=== PATIENT | female | born 1980 | race Caucasian/White ===

== ENCOUNTER 2017-06-18 09:39 | Inpatient (IN) ==
[2017-06-18] MEDS ORDERED: Ondansetron 4 MG/2 ML VIAL IVP ONE (09:44)
[2017-06-18] MEDS ORDERED: 0.9 % Sodium Chloride 1,000 ML IVC ONE ×4 (09:44→23:22)
--- NOTE | 2017-06-18 09:49 | Emergency Department Note ---
Disposition Clinical Impression: Sepsis due to urinary tract infection, Pyelonephritis, Colitis presumed infectious, Tachycardia, Metabolic acidosis Hypotension Qualifiers: Hypotension type: unspecified hypotension type Qualified Code(s): I95.9 - Hypotension, unspecified Disposition: Admitted As Inpatient Condition: Fair Time of Disposition: 14:27 General Adult HPI - General Chief complaint: ED Shortness of Breath/Dyspnea Stated complaint: WILLIAM Time Seen by Provider: 06/18/17 09:41 Source: other (Borematic Machine Operator named Urszula; patient is nonverbal) Mode of arrival: EMS Limitations: language barrier Nursing Notes Reviewed: Yes Vital Signs Reviewed: Yes - History of Present Illness HPI Narrative: Patient is a 36-year-old nonverbal female with history of tuberous sclerosis who presents the ED by EMS for small variety of complaints. Patient was followed shortly by her wringer operator Urszula who helps elucidate some of the acute concerns leading up to ED presentation. Urszula states patient has been anorexic over the past day and a half (last meal was breakfast yesterday), and patient has had 2 diarrheal episodes overnight; furthermore patient appeared short of breath and "out of it" this morning. Otherwise, Urszula states patient has not been having any other apparent symptoms such as fever, diaphoresis, vomiting, distress, or other alterations in behavior. EMS reports patient fully alert with stable vitals on transport. - Related Data Allergies Allergy/AdvReac Type Severity Reaction Status Date / Time No Known Allergies Allergy Verified 06/18/17 14:54 Limitations: ROS unobtainable due to patients medical condition Past Medical History - Past Medical History Source: other (confirmed with wringer operator) Medical history: Reports: seizures Psychiatric history: Reports: no psych history - Social History Smoking Status: Never smoker Smokeless Tobacco Status: No Alcohol use: Reports: none Drug use: Reports: none Physical Exam - General Limitations: other (Nonverbal patient) General appearance: alert, in no apparent distress - Head Head exam: normocephalic - Eye Eye exam: Present: PERRL, EOMI. Absent: scleral icterus, conjunctival injection , miosis, mydriasis, periorbital swelling - ENT ENT exam: mucous membranes dry - Neck Neck exam: Present: trachea midline. Absent: meningismus (Patient moves ahead neck freely including neck flexion) - Chest Chest inspection: Present: symmetric chest wall rise - Respiratory Respiratory exam: Present: normal lung sounds bilaterally. Absent: respiratory distress, wheezes, stridor, accessory muscle use, prolonged expiratory phase - Cardiovascular Cardiovascular exam: Present: normal rhythm, tachycardia, normal heart sounds - Abdominal Exam Abdominal exam: Present: soft, Non-Tender. Absent: distention, guarding, rigidity - Neurological Exam Neurological exam: Present: alert - Skin Skin exam: Present: warm, dry. Absent: cyanosis, diaphoresis, pallor, mottled Course Vital Signs Temperature 97.1 F L 06/18/17 09:43 Pulse Rate 118 06/18/17 09:43 Respiratory Rate 18 06/18/17 09:43 Blood Pressure 90/59 06/18/17 09:43 O2 Sat by Pulse Oximetry 100 06/18/17 09:43 Temperature 97.1 F L 06/18/17 09:43 Pulse Rate 116 06/18/17 13:56 Respiratory Rate 16 06/18/17 14:34 Blood Pressure 104/58 06/18/17 14:34 O2 Sat by Pulse Oximetry 98 06/18/17 13:56 Oxygen Delivery Oxygen Delivery Room Air Medical Decision Making - [facility] Narrative Medical decision making narrative: 36-year-old nonverbal patient with history of tuberous sclerosis presents to the ED with variety of reported concerns the patient is unable to elaborate on. Patient appears stable, though tachycardic, and otherwise has a benign exam. Started IV and given 1 L bolus normal saline, checked CBC, BMP, LFT, UA, chest x -ray, EKG; UA clearly demonstrates urinary tract infection which is supported by leukocytosis with left shift; labs also significant for acute kidney injury with elevated BUN and creatinine. Other labs demonstrate multiple electrolyte abnormalities including CO2 of 10; 2 additional boluses of IV fluids started, VBG pending, serum ketones negative, blood cultures & lactate added. CT demonstrates diffuse colitis possibly infectious in etiology. Patient has been progressively hypotensive throughout ED course which has shown some response to with multiple liters of normal saline. Spoke with Dr. Velasco, hospitalist, who agrees to admit patient to ICU for ongoing fluid resuscitation and IV antibiotics for sepsis due to UTI and possible infectious colitis. Furthermore, lab profile demonstrates metabolic acidosis likely secondary to sepsis; lactate is 4.2. Second large bore IV access in progress at this time. - Medical Records Medical records reviewed: Yes I reviewed the patient's medical records. - Lab Data Lab results reviewed: Yes I reviewed the patient's lab results. Result diagrams: 06/18/17 10:38 06/18/17 10:38 Lab Results 06/18/17 06/18/17 06/18/17 Range/Units 10:15 10:38 10:38 WBC 14.1 H (4.3-11.1) K/mcL RBC 5.34 H (3.82-4.97) M/mcL Hgb 15.2 (11.5-15.4) g/dL Hct 49.4 H (35.3-44.9) % MCV 92.5 (83.0-100.0) fL MCH 28.5 (28.0-33.3) pg MCHC 30.8 L (31.6-35.5) g/dL RDW 13.0 (11.5-14.5) % Plt Count 244 (140-400) K/mcL MPV 9.9 (9.4-12.4) fL Immature Gran % 0.4 (0-4) % Seg Neutrophils % 79.3 % Lymphocytes % 9.5 % Monocytes % 10.6 % Eosinophils % 0.0 % Basophils % 0.2 % Neutrophils # 11.1 H (1.6-8.9) K/mcL Lymphocytes # 1.3 (0.6-4.6) K/mcL Monocytes # 1.5 H (0.0-1.3) K/mcL Eosinophils # 0.0 (0.0-0.6) K/mcL Basophils # 0.0 (0.0-0.2) K/mcL VBG pH (7.32-7.42) pH Units VBG pCO2 (41-51) mmHg VBG pO2 (25-50) mmHg VBG HCO3 (21-27) mEq/L Sodium 142 (136-145) mEq/L Potassium 5.5 H (3.5-4.5) mEq/L Chloride 116 H (98-109) mEq/L Carbon Dioxide 10 L* (19-29) mEq/L BUN 77 H (7-20) mg/dL Creatinine 2.91 H (0.57-1.11) mg/dL Est GFR ( Amer) 22 L (> 60) Est GFR (Non-Af Amer) 18 L (> 60) BUN/Creatinine Ratio 26 (6-26) Glucose 216 H (70-99) mg/dL Calculated Osmolality 324 H (280-300) Lactic Acid (0.5-2.2) mmol/L Calcium 9.1 (8.6-10.8) mg/dL Total Bilirubin 0.6 (0.2-1.2) mg/dL Direct Bilirubin 0.2 (0.0-0.5) mg/dL Indirect Bilirubin 0.4 (0.0-1.2) mg/dL AST 25 (5-34) Units/L ALT 30 (0-55) Units/L Alkaline Phosphatase 102 (38-126) Units/L Serum Total Protein 7.2 (6.0-8.3) g/dL Albumin 3.0 L (3.5-5.0) g/dL Globulin 4.2 H (2.4-3.5) g/dL Albumin/Globulin Ratio 0.7 L (1.1-2.2) Beta-Hydroxybutyric Acd 0.18 (0.02-0.27) mmol/L Urine Color Brown (Yellow) Urine Clarity Turbid A (Clear) Urine pH 5.0 (5.0-8.0) pH Units Ur Specific [place] 1.029 H (1.010-1.025) Urine Protein Negative (Neg-Trace) mg/dL Urine Glucose (UA) Normal (Normal) mg/dL Urine Ketones Trace H (Negative) mg/dL Urine Blood Moderate H (Negative) Urine Nitrite Positive A (Negative) Urine Bilirubin Large H (Negative) Urine Urobilinogen Normal (Normal) mg/dL Ur Leukocyte Esterase Moderate H (Negative) Urine Microscopic RBC 3-5 H (0-3) per hpf Urine Microscopic WBC 3-5 H (0-3) per hpf Ur Squamous Epith Cells Many H (None-Few) per lpf Urine Bacteria Many H (None-Few) per hpf Ur Culture Indicated? YES A (NO) Person Notif of Crit 06/18/17 06/18/17 Range/Units 13:29 13:51 WBC (4.3-11.1) K/mcL RBC (3.82-4.97) M/mcL Hgb (11.5-15.4) g/dL Hct (35.3-44.9) % MCV (83.0-100.0) fL MCH (28.0-33.3) pg MCHC (31.6-35.5) g/dL RDW (11.5-14.5) % Plt Count (140-400) K/mcL MPV (9.4-12.4) fL Immature Gran % (0-4) % Seg Neutrophils % % Lymphocytes % % Monocytes % % Eosinophils % % Basophils % % Neutrophils # (1.6-8.9) K/mcL Lymphocytes # (0.6-4.6) K/mcL Monocytes # (0.0-1.3) K/mcL Eosinophils # (0.0-0.6) K/mcL Basophils # (0.0-0.2) K/mcL VBG pH 7.19 L* (7.32-7.42) pH Units VBG pCO2 27 L (41-51) mmHg VBG pO2 198 H (25-50) mmHg VBG HCO3 10 L (21-27) mEq/L Sodium (136-145) mEq/L Potassium (3.5-4.5) mEq/L Chloride (98-109) mEq/L Carbon Dioxide (19-29) mEq/L BUN (7-20) mg/dL Creatinine (0.57-1.11) mg/dL Est GFR ( Amer) (> 60) Est GFR (Non-Af Amer) (> 60) BUN/Creatinine Ratio (6-26) Glucose (70-99) mg/dL Calculated Osmolality (280-300) Lactic Acid 4.2 H* (0.5-2.2) mmol/L Calcium (8.6-10.8) mg/dL Total Bilirubin (0.2-1.2) mg/dL Direct Bilirubin (0.0-0.5) mg/dL Indirect Bilirubin (0.0-1.2) mg/dL AST (5-34) Units/L ALT (0-55) Units/L Alkaline Phosphatase (38-126) Units/L Serum Total Protein (6.0-8.3) g/dL Albumin (3.5-5.0) g/dL Globulin (2.4-3.5) g/dL Albumin/Globulin Ratio (1.1-2.2) Beta-Hydroxybutyric Acd (0.02-0.27) mmol/L Urine Color (Yellow) Urine Clarity (Clear) Urine pH (5.0-8.0) pH Units Ur Specific [place] (1.010-1.025) Urine Protein (Neg-Trace) mg/dL Urine Glucose (UA) (Normal) mg/dL Urine Ketones (Negative) mg/dL Urine Blood (Negative) Urine Nitrite (Negative) Urine Bilirubin (Negative) Urine Urobilinogen (Normal) mg/dL Ur Leukocyte Esterase (Negative) Urine Microscopic RBC (0-3) per hpf Urine Microscopic WBC (0-3) per hpf Ur Squamous Epith Cells (None-Few) per lpf Urine Bacteria (None-Few) per hpf Ur Culture Indicated? (NO) Person Notif of Liz owens Laboratory Last Values WBC 14.1 K/mcL (4.3-11.1) H 06/18/17 10:38 RBC 5.34 M/mcL (3.82-4.97) H 06/18/17 10:38 Hgb 15.2 g/dL (11.5-15.4) 06/18/17 10:38 Hct 49.4 % (35.3-44.9) H 06/18/17 10:38 MCV 92.5 fL (83.0-100.0) 06/18/17 10:38 MCH 28.5 pg (28.0-33.3) 06/18/17 10:38 MCHC 30.8 g/dL (31.6-35.5) L 06/18/17 10:38 RDW 13.0 % (11.5-14.5) 06/18/17 10:38 Plt Count 244 K/mcL (140-400) 06/18/17 10:38 MPV 9.9 fL (9.4-12.4) 06/18/17 10:38 Immature Gran % 0.4 % (0-4) 06/18/17 10:38 Seg Neutrophils % 79.3 % 06/18/17 10:38 Lymphocytes % 9.5 % 06/18/17 10:38 Monocytes % 10.6 % 06/18/17 10:38 Eosinophils % 0.0 % 06/18/17 10:38 Basophils % 0.2 % 06/18/17 10:38 Neutrophils # 11.1 K/mcL (1.6-8.9) H 06/18/17 10:38 Lymphocytes # 1.3 K/mcL (0.6-4.6) 06/18/17 10:38 Monocytes # 1.5 K/mcL (0.0-1.3) H 06/18/17 10:38 Eosinophils # 0.0 K/mcL (0.0-0.6) 06/18/17 10:38 Basophils # 0.0 K/mcL (0.0-0.2) 06/18/17 10:38 VBG pH 7.19 pH Units (7.32-7.42) L* 06/18/17 13:51 VBG pCO2 27 mmHg (41-51) L 06/18/17 13:51 VBG pO2 198 mmHg (25-50) H 06/18/17 13:51 VBG HCO3 10 mEq/L (21-27) L 06/18/17 13:51 Sodium 142 mEq/L (136-145) 06/18/17 10:38 Potassium 5.5 mEq/L (3.5-4.5) H 06/18/17 10:38 Chloride 116 mEq/L (98-109) H 06/18/17 10:38 Carbon Dioxide 10 mEq/L (19-29) L* 06/18/17 10:38 BUN 77 mg/dL (7-20) H 06/18/17 10:38 Creatinine 2.91 mg/dL (0.57-1.11) H 06/18/17 10:38 Est GFR ( Amer) 22 (> 60) L 06/18/17 10:38 Est GFR (Non-Af Amer) 18 (> 60) L 06/18/17 10:38 BUN/Creatinine Ratio 26 (6-26) 06/18/17 10:38 Glucose 216 mg/dL (70-99) H 06/18/17 10:38 Calculated Osmolality 324 (280-300) H 06/18/17 10:38 Lactic Acid 4.2 mmol/L (0.5-2.2) H* 06/18/17 13:29 Calcium 9.1 mg/dL (8.6-10.8) 06/18/17 10:38 Total Bilirubin 0.6 mg/dL (0.2-1.2) 06/18/17 10:38 Direct Bilirubin 0.2 mg/dL (0.0-0.5) 06/18/17 10:38 Indirect Bilirubin 0.4 mg/dL (0.0-1.2) 06/18/17 10:38 AST 25 Units/L (5-34) 06/18/17 10:38 ALT 30 Units/L (0-55) 06/18/17 10:38 Alkaline Phosphatase 102 Units/L (38-126) 06/18/17 10:38 Serum Total Protein 7.2 g/dL (6.0-8.3) 06/18/17 10:38 Albumin 3.0 g/dL (3.5-5.0) L 06/18/17 10:38 Globulin 4.2 g/dL (2.4-3.5) H 06/18/17 10:38 Albumin/Globulin Ratio 0.7 (1.1-2.2) L 06/18/17 10:38 Beta-Hydroxybutyric Acd 0.18 mmol/L (0.02-0.27) 06/18/17 10:38 Urine Color Brown (Yellow) 06/18/17 10:15 Urine Clarity Turbid (Clear) A 06/18/17 10:15 Urine pH 5.0 pH Units (5.0-8.0) 06/18/17 10:15 Ur Specific [place] 1.029 (1.010-1.025) H 06/18/17 10:15 Urine Protein Negative mg/dL (Neg-Trace) 06/18/17 10:15 Urine Glucose (UA) Normal mg/dL (Normal) 06/18/17 10:15 Urine Ketones Trace mg/dL (Negative) H 06/18/17 10:15 Urine Blood Moderate (Negative) H 06/18/17 10:15 Urine Nitrite Positive (Negative) A 06/18/17 10:15 Urine Bilirubin Large (Negative) H 06/18/17 10:15 Urine Urobilinogen Normal mg/dL (Normal) 06/18/17 10:15 Ur Leukocyte Esterase Moderate (Negative) H 06/18/17 10:15 Urine Microscopic RBC 3-5 per hpf (0-3) H 06/18/17 10:15 Urine Microscopic WBC 3-5 per hpf (0-3) H 06/18/17 10:15 Ur Squamous Epith Cells Many per lpf (None-Few) H 06/18/17 10:15 Urine Bacteria Many per hpf (None-Few) H 06/18/17 10:15 Ur Culture Indicated? YES (NO) A 06/18/17 10:15 Person Notif of Liz owens 06/18/17 13:51 - Radiology Data Radiology results reviewed: Yes I reviewed the patient's radiology results. Chest X-Ray 06/18/17 09:54 IMPRESSION: No acute cardiopulmonary process. D/ / 06/18/2017 12:31:46 Pramod Reed MD / nicolas Interpreting Provider: Pramod Reed MD Abdomen/Pelvis CT 06/18/17 11:19 IMPRESSION: 1. Moderate to severe multifocal wall thickening of the colon is most suggestive of an infectious or inflammatory colitis. There is no evidence of perforation, free air, or abscess. 2. 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 3. Patient is status post right nephrectomy. 4. Multiple small subcentimeter left lower lobe pulmonary nodules, the largest measuring 5 mm within the subpleural left lower lobe. While these likely reflect benign granulomata, further follow-up of these nodules is as advised below. RECOMMENDATIONS: Fleischner Society guidelines for follow-up and management of incidentally detected pulmonary nodules: Multiple Solid Nodules: Nodule size less than 6 mm In a low-risk patient, no routine follow-up. In a high-risk patient, optional CT at 12 months. - Low risk patients include individuals with minimal or absent history of smoking and other known risk factors. - High risk patients include individuals with a history or smoking or known risk factors. Radiology 2017 http://pubs.rsna.org/doi/full/10.1148/radiol.[email or web address] D/ / 06/18/2017 13:49:53 Charbel Guerrero MD / collins Interpreting Provider: Charbel Guerrero MD - EKG Data EKG #1 EKG attestation: Yes I reviewed and interpreted this EKG. EKG results narrative: 06/18/2017 1001: rate 118, TX 173, QRS 85, QTC 414, axis 53, no specific t- wave abnormalities, no ST elevation or depression; no ischemic changes seen -- sinus tachycardia. Critical Care Time Critical Care Time: Yes Total Critical Care Time: 35 Attestation: Critical care performed: Time is exclusive of separately billable procedures. Time includes: direct patient care, patient reassessment, coordination of patient care, interpretation of data (laboratory data, radiology data, and respiratory data), review of patient's medical records, medical consultation and documentation of patient care. Procedures included in critical care time: Procedures excluded from critical care time: Attestation Statement - Attestation Attestation: I, Tano Lopez DO, examined this patient [id number] and my medical decision-making was reviewed with (Edwin Iverson PGY-1, Resident Physician. I agree with the documented findings, disposition and treatment plan as described except to the extent set forth below. Please see my progress notes for details. To repeat manual blood pressures were recorded at 105/70 and 104/68 prior to going up to the ICU. Central venous access was required at this time.
[2017-06-18 10:30] LABS: Bilirubin,Urine Large (Negative); Blood,Urine Moderate (Negative); Clarity,Urine Turbid (Clear); Glucose,Urine (UA) Normal (Normal); Ketones,Urine Trace mg/dL (Negative); Leukocyte Esterase,Urine Moderate (Negative); Nitrite,Urine Positive (Negative); Protein,Urine Negative (Neg-Trace); Specific Gravity,Urine 1.029 (1.010-1.025); Urobilinogen,Urine Normal (Normal)
[2017-06-18] MEDS ORDERED: Hydrocortisone Sodium Succ 100 MG/2 ML VIAL IVP ONE (10:36)
[2017-06-18 10:45] LABS: Basophils % 0.2 %; Hematocrit 49.4 % (35.3-44.9); Hemoglobin 15.2 g/dL (11.5-15.4); Immature Granulocytes % 0.4 % (0-4); Lymphocytes # 1.3 K/mcL (0.6-4.6); Lymphocytes % 9.5 %; Mean Corpuscular HGB Conc 30.8 g/dL (31.6-35.5); Mean Corpuscular Hemoglobin 28.5 pg (28.0-33.3); Mean Corpuscular Volume 92.5 fL (83.0-100.0); Mean Platelet Volume 9.9 fL (9.4-12.4); Monocytes # 1.5 K/mcL (0.0-1.3); Monocytes % 10.6 %; Neutrophils # 11.1 K/mcL (1.6-8.9); Platelet Count 244 K/mcL (140-400); Red Blood Count 5.34 M/mcL (3.82-4.97); Segmented Neutrophils % 79.3 %
[2017-06-18 10:55] LABS: Squamous Epithelial Cell,Urine Many per lpf (None-Few)
[2017-06-18 10:56] LABS: Bacteria,Urine Many per hpf (None-Few)
[2017-06-18 10:57] LABS: Color,Urine Brown (Yellow)
[2017-06-18 11:01] LABS: Albumin/Globulin Ratio 0.7 (1.1-2.2); Bilirubin,Direct 0.2 mg/dL (0.0-0.5); Bilirubin,Indirect 0.4 mg/dL (0.0-1.2); Bilirubin,Total 0.6 mg/dL (0.2-1.2); Calcium 9.1 mg/dL (8.6-10.8); Globulin 4.2 g/dL (2.4-3.5); Potassium 5.5 mEq/L (3.5-4.5); Total Protein 7.2 g/dL (6.0-8.3)
--- NOTE | 2017-06-18 11:38 | Emergency Department Note ---
START Narrative - START START: 36-year-old female that is chronically disabled presents emergency room for evaluation of change in mentation productive cough and generalized malaise. Unknown etiology at this time. Patient is non-conversational at baseline. Her care provider is at the bedside. Physical exam is relatively unremarkable except for skin turgor is poor mucous membranes are slightly dry. Patient does not have any sounds or crackles in her lungs or heart is regular but tachycardic. Abdomen is soft nontender nondistended with no guarding or rigidity. No signs of pitting edema in lower extremity. Vital signs are concerning. Sepsis evaluation to be completed with chest x-ray EKG CT of the abdomen. Stress dose steroids fluids to be given at this time. Patient will have antibiotic regimen started as infectious etiology presents itself. Disposition pending workup and treatment course. Patient is potentially critically ill secondary to her medical history. Disposition will most likely of admission was definitive evaluation as determined. See detailed documentation of physical exam, medical intervention, medical decision-making resident physician's note. 1145 Patient found to have significant urinary tract infection along with elevated white blood cell count and what appears to be a gap metabolic acidosis. Her glucose is elevated. Evaluation for diabetic ketoacidosis to be completed at this time. Patient will also be given Rocephin to treat urinary tract infection etiology. CT imaging is pending. Chest x-ray to be resulted. 1325 patient found to have what appears to be urosepsis with possibility of inflammatory colitis in the abdomen secondary to pyelonephritis. Hospitals patient this time for admission process. Patient has not required any aggressive resuscitation with IV blood pressure augmentation. Patient is to rest comfortably in the bed with multifocal urosepsis and multiple comorbidities augmenting her medical presentation. Admission process to be completed at this time. Fluid resuscitation provided.
[2017-06-18] MEDS: 0.9 % Sodium Chloride 1,000 ML IVC SCH (12:05)
[2017-06-18 13:06] LABS: Beta-Hydroxybutyric Acid 0.18 mmol/L (0.02-0.27)
[2017-06-18] MEDS ORDERED: 0.9 % Sodium Chloride 1,000 ML IVC SCH (13:45)
[2017-06-18 14:08] LABS: VBG HCO3 10 mEq/L (21-27); VBG PCO2 27 mmHg (41-51); VBG PH 7.19 pH Units (7.32-7.42); VBG PO2 198 mmHg (25-50)
[2017-06-18] MEDS ORDERED: Calcium Gluconate 1,000 MG in D5% in Water 100 ML IVPB ONE (14:31)
--- NOTE | 2017-06-18 14:45 | Internal Med History&Physical ---
Date of Encounter: 06/18/17 Time of Encounter: 14:40 Assessment and Plan (1) Metabolic encephalopathy Current visit: Yes Status: Acute Due to severe sepsis. (2) LENA (acute kidney injury) Current visit: Yes Status: Acute Asus sepsis and hypotension. Hydrate and keep map more than 65 at all times. Jesus catheter will be placed. Follow intake and output (3) Tuberous sclerosis Current visit: Yes Status: Acute History of tuberous sclerosis with seizures that are well controlled with topiramate (4) Colitis presumed infectious Current visit: Yes Status: Acute I will start the patient on broad-spectrum antibiotics including vancomycin, Zosyn, Flagyl. Will check stool studies for culture, C diff (5) Urinary tract infection Current visit: Yes Status: Acute Start patient and antibiotics. Urine culture. Critical care time spent in ICU care more than 35 minutes Qualifiers: Qualified Code(s): N39.0 - Urinary tract infection, site not specified Internal Medicine - H&P: HPI Chief complaint: diarrhea, weakness History of present illness: Ms. Magallanes is a 36 year old female with history of tuberous sclerosis, seizure disorder controlled with topiramate, mental retardation, lives in a detention presents with her caregiver today with the main complain of diarrhea and weakness. Patient's caregiver noticed yesterday that the patient was appearing to be weak, has not a dinner. Today patient started having diarrhea, and the patient was coming more and more lethargic. She is not been interactive with caregiver a detention. Caregiver has not noticed any fevers chills vomiting. No mention of neck pain. No cough or expectoration. She has prior history of recurrent urinary tract infections. Patient is usually alert, ambulates independently and has good appetite and eats well and communicate only with gestures. Patient has a legal guardian wishes her to be full code. On arrival to emergency room patient appears to be in severe sepsis. She had received so far 1.5 L of fluid with intermittent hypotension she is being admitted to the intensive care Past Med Surg Social Fam HX - Past Medical History Medical history: seizures Psychiatric history: no psych history - Social History Smoking Status: Never smoker Smokeless Tobacco Status: No Alcohol use: none Drug use: none Internal Medicine - H&P: Meds 3 Allergy/AdvReac Type Severity Reaction Status Date / Time No Known Allergies Allergy Verified 01/03/17 12:19 All Systems PM: A 10-system review of systems was performed and is negative for pertinent findings except as documented above in the HPI. Review of systems: 10 point review of systems is negative except for HPI - Constitutional Vitals: Temp Pulse Resp BP Pulse Ox 97.1 F L 116 16 104/58 98 06/18/17 09:43 06/18/17 13:56 06/18/17 14:34 06/18/17 14:34 06/18/17 13:56 Exam: Gen.: patient is lethargic Cardiac: normal S1 S2 tachycardic Chest: clear to auscultation. Abdomen: soft nontender, no guarding Lower extremity no swelling mucous membranes: dry Internal Med - H&P Results - Labs CBC & Chem 7: 06/18/17 10:38 06/18/17 10:38
[2017-06-18] MEDS ORDERED: Vancomycin 1,000 MG in D5% in Water 250 ML IVPB SCH (15:00)
[2017-06-18] MEDS: Sodium Bicarbonate 50 MEQ in 0.45 % Sodium Chloride 1,000 ML IVC SCH ×2 (15:51→21:56)
[2017-06-18] MEDS: Piperacillin/Tazobactam 3.375 GM in D5% in Water (Mini-Bag+) 100 ML IVPB SCH (17:04)
[2017-06-18] MEDS: MetroNIDAZOLE 500 MG/100 ML 500 MG/100 ML BAG IVPB SCH ×2 (17:04→22:14)
[2017-06-18 17:11] LABS: Magnesium 2.3 mg/dL (1.6-2.6); Potassium 5.1 mEq/L (3.5-4.5)
[2017-06-18 17:16] LABS: VBG HCO3 10 mEq/L (21-27); VBG PCO2 22 mmHg (41-51); VBG PH 7.29 pH Units (7.32-7.42); VBG PO2 218 mmHg (25-50)
[2017-06-18 17:17] LABS: Calcium 7.1 mg/dL (8.6-10.8)
[2017-06-18 21:34] LABS: VBG HCO3 12 mEq/L (21-27); VBG PCO2 28 mmHg (41-51); VBG PH 7.23 pH Units (7.32-7.42); VBG PO2 223 mmHg (25-50)
[2017-06-18 23:48] LABS: Basophils % 0.1 %; Hematocrit 41.4 % (35.3-44.9); Hemoglobin 13.2 g/dL (11.5-15.4); Immature Granulocytes % 0.4 % (0-4); Immature Platelets 1.6 % (1.1-6.1); Lymphocytes # 0.7 K/mcL (0.6-4.6); Lymphocytes % 9.5 %; Mean Corpuscular HGB Conc 31.9 g/dL (31.6-35.5); Mean Corpuscular Hemoglobin 28.6 pg (28.0-33.3); Mean Corpuscular Volume 89.8 fL (83.0-100.0); Monocytes # 0.9 K/mcL (0.0-1.3); Monocytes % 11.1 %; Neutrophils # 6.1 K/mcL (1.6-8.9); Platelet Count 156 K/mcL (140-400); Red Blood Count 4.61 M/mcL (3.82-4.97); Red Cell Distribution Width 13.2 % (11.5-14.5); Segmented Neutrophils % 78.9 %
[2017-06-19] LABS: Calcium 7.1 mg/dL (8.6-10.8); Potassium 4.3 mEq/L (3.5-4.5)
[2017-06-19] MEDS: Piperacillin/Tazobactam 3.375 GM in D5% in Water (Mini-Bag+) 100 ML IVPB SCH ×2 (00:19→07:57)
[2017-06-19] MEDS: Sodium Bicarbonate 50 MEQ in 0.45 % Sodium Chloride 1,000 ML IVC SCH ×3 (03:22→15:23)
[2017-06-19 05:41] LABS: Albumin 2.3 g/dL (3.5-5.0); Bilirubin,Total 0.3 mg/dL (0.2-1.2); Calcium 6.2 mg/dL (8.6-10.8); Globulin 2.3 g/dL (2.4-3.5); Magnesium 1.8 mg/dL (1.6-2.6); Potassium 3.7 mEq/L (3.5-4.5); Total Protein 4.6 g/dL (6.0-8.3)
[2017-06-19] MEDS: MetroNIDAZOLE 500 MG/100 ML 500 MG/100 ML BAG IVPB SCH ×3 (05:46→23:16)
[2017-06-19 06:40] LABS: Basophils % 0.1 %; Eosinophils % 0.3 %; Hematocrit 30.7 % (35.3-44.9); Immature Granulocytes % 0.3 % (0-4); Immature Platelets 1.7 % (1.1-6.1); Lymphocytes # 0.9 K/mcL (0.6-4.6); Lymphocytes % 10.8 %; Mean Corpuscular HGB Conc 32.6 g/dL (31.6-35.5); Mean Corpuscular Hemoglobin 28.4 pg (28.0-33.3); Mean Corpuscular Volume 87.2 fL (83.0-100.0); Monocytes % 13.1 %; Platelet Count 142 K/mcL (140-400); Red Blood Count 3.52 M/mcL (3.82-4.97); Red Cell Distribution Width 13.4 % (11.5-14.5); Segmented Neutrophils % 75.4 %
[2017-06-19] MEDS ORDERED: Aminoglycoside Consult 1 EACH MC ONE (07:57)
[2017-06-19] MEDS: Pantoprazole 40 MG VIAL IVP SCH (07:58)
[2017-06-19 09:46] LABS: Adenovirus F 40/41 PCR Not detected (Not detect); Astrovirus PCR Not detected (Not detect); C.difficile Toxin A/B by PCR Not detected (Not detect); Campylobacter by PCR Not detected (Not detect); Cryptosporidium by PCR Not detected (Not detect); Cyclospora cayetanensis PCR Not detected (Not detect); E. coli O157 by PCR Not detected (Not detect); Entamoeba histolytica PCR Not detected (Not detect); Enteroaggregative E.coli(EAEC) Not detected (Not detect); Enteropathogenic E.coli(EPEC) Not detected (Not detect); Enterotoxigenic E.coli (ETEC) Not detected (Not detect); Giardia lamblia PCR Not detected (Not detect); Norovirus GI/GII PCR Not detected (Not detect); Plesiomonas shigelloides PCR Not detected (Not detect); Rotavirus A PCR Not detected (Not detect); Salmonella PCR Not detected (Not detect); Sapovirus PCR Not detected (Not detect); Shig/EnteroinvasiveE coli EIEC Not detected (Not detect); Shigalike tox-prod E coli STEC Not detected (Not detect); Vibrio PCR Not detected (Not detect); Vibrio cholerae PCR Not detected (Not detect); Yersinia enterocolitica PCR Not detected (Not detect)
--- NOTE | 2017-06-19 14:18 | Electrocardiograph Report ---
[address] [place], [place] [address] Test Date: 2017-06-18 Pat Name: Yuliya Magallanes Department: 102 Room: [facility] Gender: F Punch Hand: Elder : 1980 Requested By: Edwin Iverson Order Number: [id number] Reading MD: Phoebe Mcmillan Measurements Intervals [place] Rate: 118 P: 72 CT: 173 QRS: 53 QRSD: 85 T: 76 QT: 344 QTc: 414 Interpretive Statements SINUS TACHYCARDIA POSSIBLE RIGHT ATRIAL ENLARGEMENT NONSPECIFIC T-WAVE ABNORMALITY ABNORMAL RHYTHM ECG Electronically Signed On 06-19-2017 14:17:40 EDT by Phoebe Mcmillan
--- NOTE | 2017-06-19 14:51 | Internal Med Progress Note ---
Date of Encounter: 06/19/17 Time of Encounter: 14:48 - Assessment and plan (1) Colitis presumed infectious Current Visit: Yes Status: Acute Assessment and plan: Acute metabolic acidosis due to Severe sepsis secondary to acute colitis possibly infectious Discontinue Zosyn and vancomycin Start IV ciprofloxacin and continue Flagyl IV The patient is currently nothing by mouth, okay to start oral antiseizure medications, consider clear liquids if improving Consider pressors if not improving CT scan of the abdomen showed:1. Moderate to severe multifocal wall thickening of the colon is most suggestive of an infectious or inflammatory colitis. There is no evidence of perforation, free air, or abscess. 2. 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 3. Patient status post right nephrectomy. 4. Multiple small subcentimeter left lower lobe pulmonary nodules, the largest measuring 5 mm within the subpleural left lower lobe. While these likely reflect benign granulomata, further follow-up of these nodules is as advised below. 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 May resume topiramate, may order Ativan IV as needed May be transferred out of the ICU is improving - Subjective Interval history: Patient is nonverbal at the moment, unable to provide any history or review of systems due to her condition - Constitutional Vitals: Temp Pulse Resp BP Pulse Ox 99.5 F 107 19 112/89 95 06/19/17 12:00 06/19/17 14:00 06/19/17 14:00 06/19/17 14:00 06/19/17 14:00 General appearance: Present: A&O X 1 - Head Head exam: Present: atraumatic, normocephalic - Eye Eye exam: Present: PERRL, conjuntiva pink, sclera anicteric Pupils: Present: PERRL - Neck Neck exam general surgery: Present: supple, trachea midline. Absent: lymphadenopathy Additional comments: Kyphosis - Respiratory Respiratory exam: Present: CTAB. Absent: accessory muscle use, rales, rhonchi, wheezes - Cardiovascular Cardiovascular exam: Present: RRR, +S1, +S2. Absent: diastolic murmur, gallop, rubs, systolic murmur - GI/Abdominal GI/Abdominal exam: Present: normal bowel sounds, soft, tenderness (Diffuse abdominal tenderness), no peritoneal signs. Absent: distended - Extremities Exam Extremities exam: Present: warm, radial pulses palpable and symmetrical. Absent : calf tenderness, cyanotic, pedal edema - Neurological Exam Neurological exam: Present: CN II-XII intact, no focal deficits. Absent: oriented X3, pronater drift, facial droop, speech deficit - Skin Skin exam: Present: dry, intact Additional comments: Dermatologic facial lesions compatible with tubero sclerosis Internal Medicine: Result - Labs CBC & Chem 7: 06/19/17 05:52 06/19/17 04:34 Labs: Short CBC 06/18/17 06/19/17 Range/Units 23:35 05:52 WBC 7.7 7.9 (4.3-11.1) K/mcL Hgb 13.2 D 10.0 L D (11.5-15.4) g/dL Hct 41.4 30.7 L (35.3-44.9) % Plt Count 156 142 (140-400) K/mcL Neutrophils # 6.1 6.0 (1.6-8.9) K/mcL BMP 06/18/17 06/18/17 06/19/17 16:52 23:35 04:34 Sodium 145 144 146 H Potassium 5.1 H 4.3 3.7 Chloride 122 H 119 H 122 H Carbon Dioxide 10 L* 11 L 14 L BUN 75 H 71 H 58 H Creatinine 2.36 H 2.51 H 2.02 H Glucose 199 H 147 H 122 H Calcium 7.1 L D 7.1 L 6.2 L Liver Function 06/19/17 Range/Units 04:34 Total Bilirubin 0.3 (0.2-1.2) mg/dL AST 23 (5-34) Units/L ALT 19 (0-55) Units/L Alkaline Phosphatase 60 (38-126) Units/L Albumin 2.3 L D (3.5-5.0) g/dL - VTE Documentation of Mechanical Device: Intermittent pneumatic compression device Consult Discharge Plan - Plan Referrals: Bart Caceres MD [Primary Care Provider] -
[2017-06-19] MEDS ORDERED: *HR* LORazepam 2 MG/ML VIAL IVP PRN (14:56)
[2017-06-19 15:57] LABS: VBG PH 7.34 pH Units (7.32-7.42)
[2017-06-19] MEDS: Topiramate 100 MG TABLET PO SCH ×2 (17:47→20:17)
[2017-06-19] MEDS: D5% in 0.45% NACL 1,000 ML IVC SCH ×2 (17:47→23:14)
[2017-06-19] MEDS: (Lamotrigine [Lamictal Xr] 300 MG) PO SCH (18:02)
[2017-06-19] MEDS: 0.9 % Sodium Chloride 1,000 ML IVC SCH ×4 (20:56→20:59)
[2017-06-20] MEDS: D5% in 0.45% NACL 1,000 ML IVC SCH ×5 (04:40→22:34)
[2017-06-20 05:03] LABS: Hemoglobin 9.4 g/dL (11.5-15.4); Mean Corpuscular HGB Conc 32.4 g/dL (31.6-35.5); Mean Corpuscular Hemoglobin 28.6 pg (28.0-33.3); Mean Corpuscular Volume 88.1 fL (83.0-100.0); Mean Platelet Volume 10.8 fL (9.4-12.4); Platelet Count 129 K/mcL (140-400); Red Blood Count 3.29 M/mcL (3.82-4.97); Red Cell Distribution Width 13.6 % (11.5-14.5)
[2017-06-20 05:17] LABS: Calcium 6.9 mg/dL (8.6-10.8); Potassium 3.1 mEq/L (3.5-4.5)
[2017-06-20] MEDS: MetroNIDAZOLE 500 MG/100 ML 500 MG/100 ML BAG IVPB SCH ×3 (06:31→22:23)
[2017-06-20] MEDS: FLUoxetine 20 MG CAPSULE PO SCH (08:36)
[2017-06-20] MEDS: Pantoprazole 40 MG VIAL IVP SCH (08:36)
[2017-06-20] MEDS: Topiramate 100 MG TABLET PO SCH ×3 (08:38→20:01)
[2017-06-20] MEDS ORDERED: (Lamotrigine [Lamictal Xr] 300 MG) PO SCH (09:00)
[2017-06-20] MEDS: (Lamotrigine [Lamictal Xr] 300 MG) PO SCH (17:32)
[2017-06-20] MEDS: lamoTRIgine 100 MG TABLET PO SCH ×2 (18:08→23:29)
[2017-06-20] MEDS ORDERED: lamoTRIgine 100 MG TABLET PO SCH (21:00)
--- NOTE | 2017-06-21 00:06 | Internal Med Progress Note ---
Date of Encounter: 06/20/17 Time of Encounter: 15:37 - Assessment and plan (1) Colitis presumed infectious Current Visit: Yes Status: Acute Assessment and plan: Acute metabolic acidosis due to Severe sepsis secondary to acute colitis possibly infectious 06/20: Discontinue Zosyn and vancomycin 06/20: Start IV ciprofloxacin and continue Flagyl IV 06/21: advanced to clear liquid diet today without issue. Continue Cipro/Flagyl and monitor diet. BP seems more stable today. Possible transfer to floor in AM if does well. (2) LENA (acute kidney injury) Current Visit: Yes Status: Acute Assessment and plan: Acute and chronic renal failure in the setting of chronic kidney disease stage IV Cr improved now 1.55 was 2 yesterday Continue IV fluids /aggressive hydration (3) Metabolic acidosis Current Visit: Yes Status: Acute Assessment and plan: Resolved. Has been off bicarbonate drip. 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 She is alert and has had no acute events. - Constitutional Vitals: Temp Pulse Resp BP Pulse Ox 98.6 F 98 18 118/80 95 06/20/17 23:57 06/20/17 23:57 06/20/17 23:57 06/20/17 23:57 06/20/17 23:57 General appearance: Present: A&O X 1 Exam: - Head Head exam: Present: atraumatic, normocephalic - Eye Eye exam: Present: PERRL, conjuntiva pink, sclera anicteric Pupils: Present: PERRL - Neck Neck exam general surgery: Present: supple, trachea midline. Absent: lymphadenopathy Additional comments: Kyphosis - Respiratory Respiratory exam: Present: CTAB. Absent: accessory muscle use, rales, rhonchi, wheezes - Cardiovascular Cardiovascular exam: Present: RRR, +S1, +S2. Absent: diastolic murmur, gallop, rubs, systolic murmur - GI/Abdominal GI/Abdominal exam: Present: normal bowel sounds, soft, tenderness (Diffuse abdominal tenderness, without guarding but shows discomfort), no peritoneal signs. Absent: distended - Extremities Exam Extremities exam: Present: warm, radial pulses palpable and symmetrical. Absent : calf tenderness, cyanotic, pedal edema - Neurological Exam Neurological exam: Present: CN II-XII intact, no focal deficits. Absent: oriented X3, pronater drift, facial droop, speech deficit - Skin Skin exam: Present: dry, intact Dermatologic facial lesions compatible with tubero sclerosis Internal Medicine: Result - Labs CBC & Chem 7: 06/20/17 04:30 06/20/17 04:30 Labs: Short CBC 06/20/17 Range/Units 04:30 WBC 8.6 (4.3-11.1) K/mcL Hgb 9.4 L (11.5-15.4) g/dL Hct 29.0 L (35.3-44.9) % Plt Count 129 L (140-400) K/mcL BMP 06/20/17 04:30 Sodium 147 H Potassium 3.1 L Chloride 120 H Carbon Dioxide 20 BUN 27 H D Creatinine 1.55 H Glucose 179 H Calcium 6.9 L - VTE Documentation of Mechanical Device: Intermittent pneumatic compression device Consult Discharge Plan - Plan Referrals: Bart Caceres MD [Primary Care Provider] -
[2017-06-21] MEDS: D5% in 0.45% NACL 1,000 ML IVC SCH (03:56)
[2017-06-21] MEDS: MetroNIDAZOLE 500 MG/100 ML 500 MG/100 ML BAG IVPB SCH (06:43)
[2017-06-21 06:47] LABS: Basophils % 0.3 %; Eosinophils # 0.2 K/mcL (0.0-0.6); Eosinophils % 2.1 %; Hemoglobin 8.9 g/dL (11.5-15.4); Immature Granulocytes % 1.4 % (0-4); Immature Platelets 2.6 % (1.1-6.1); Lymphocytes # 1.6 K/mcL (0.6-4.6); Lymphocytes % 16.4 %; Mean Corpuscular HGB Conc 31.8 g/dL (31.6-35.5); Mean Corpuscular Hemoglobin 28.4 pg (28.0-33.3); Mean Corpuscular Volume 89.5 fL (83.0-100.0); Mean Platelet Volume 10.3 fL (9.4-12.4); Monocytes # 0.8 K/mcL (0.0-1.3); Neutrophils # 7.1 K/mcL (1.6-8.9); Platelet Count 129 K/mcL (140-400); Red Blood Count 3.13 M/mcL (3.82-4.97); Red Cell Distribution Width 13.5 % (11.5-14.5); Segmented Neutrophils % 71.8 %
[2017-06-21 07:05] LABS: BUN/Creatinine Ratio 8 (6-26); Calcium 7.1 mg/dL (8.6-10.8); Carbon Dioxide 20 mEq/L (19-29); Chloride 120 mEq/L (98-109); Glucose 154 mg/dL (70-99); Osmolality,Calculated 296 (280-300); Potassium 2.9 mEq/L (3.5-4.5); Sodium 142 mEq/L (136-145); eGFR For African Americans > 60 (> 60); eGFR For Non-African Americans 51 (> 60)
[2017-06-21 07:12] LABS: Blood Urea Nitrogen 10 mg/dL (7-20)
[2017-06-21] MEDS: Topiramate 100 MG TABLET PO SCH (07:59)
[2017-06-21] MEDS: FLUoxetine 20 MG CAPSULE PO SCH (07:59)
[2017-06-21] MEDS: lamoTRIgine 100 MG TABLET PO SCH ×3 (07:59→22:53)
[2017-06-21] MEDS: Pantoprazole 40 MG VIAL IVP SCH (08:00)
[2017-06-21] MEDS ORDERED: Potassium Chloride Elixir 20 MEQ/15 ML UDC PO ONE ×2 (11:57→13:00)
[2017-06-21] MEDS: Cholecalciferol (D-3) 1,000 UNIT TABLET PO SCH (12:51)
[2017-06-21] MEDS ORDERED: QUETIAPINE FUMARATE 400 MG PO SCH (15:00)
[2017-06-21] MEDS: EVEROLIMUS 7.5 MG PO SCH (16:09)
[2017-06-21] MEDS ORDERED: LAMOTRIGINE 400 MG PO SCH (21:00)
--- NOTE | 2017-06-21 23:21 | Internal Med Progress Note ---
Date of Encounter: 06/21/17 Time of Encounter: 13:20 - Assessment and plan (1) Colitis presumed infectious Current Visit: Yes Status: Acute Assessment and plan: Acute metabolic acidosis due to Severe sepsis secondary to acute colitis possibly infectious 06/20: Discontinue Zosyn and vancomycin 06/20: Start IV ciprofloxacin and continue Flagyl IV. GI panel negative. 06/21: advanced to clear liquid diet today without issue. Hold IVF. Transfer out of ICU today. Continue Cipro/Flagyl and closely monitor for fevers. Monitor diet intake, advance as tolerated. (2) LENA (acute kidney injury) Current Visit: Yes Status: Acute Assessment and plan: Resolved. (3) Metabolic acidosis Current Visit: Yes Status: Acute Assessment and plan: Resolved. Has been off bicarbonate drip. 06/21: Can transfer out of ICU today.. 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 Temperature of 100.6 F at 9 am. Since then has not had fever. No acute events per nursing. Tolerates Clear liquid diet - Constitutional Vitals: Temp Pulse Resp BP Pulse Ox 99.2 F 109 14 95/60 96 06/21/17 20:28 06/21/17 20:28 06/21/17 20:28 06/21/17 20:28 06/21/17 20:28 General appearance: Present: A&O X 1 Exam: - Head Head exam: Present: atraumatic, normocephalic - Respiratory Respiratory exam: Present: CTAB. Absent: accessory muscle use, rales, rhonchi, wheezes - Cardiovascular Cardiovascular exam: Present: RRR, +S1, +S2. Absent: diastolic murmur, gallop, rubs, systolic murmur - GI/Abdominal GI/Abdominal exam: Present: normal bowel sounds, soft, tenderness (Diffuse abdominal tenderness, without guarding but shows discomfort), no peritoneal signs. Absent: distended - Extremities Exam Extremities exam: Present: warm, radial pulses palpable and symmetrical. Absent : calf tenderness, cyanotic, pedal edema - Neurological Exam Neurological exam: Present: CN II-XII intact, no focal deficits. Absent: oriented X3, pronater drift, facial droop, speech deficit - Skin Skin exam: Present: dry, intact Dermatologic facial lesions compatible with tubero sclerosis Internal Medicine: Result - Labs CBC & Chem 7: 06/21/17 06:24 06/21/17 06:24 Labs: Short CBC 06/21/17 Range/Units 06:24 WBC 9.9 (4.3-11.1) K/mcL Hgb 8.9 L (11.5-15.4) g/dL Hct 28.0 L (35.3-44.9) % Plt Count 129 L (140-400) K/mcL Neutrophils # 7.1 (1.6-8.9) K/mcL BMP 06/21/17 06:24 Sodium 142 Potassium 2.9 L Chloride 120 H Carbon Dioxide 20 BUN 10 D Creatinine 1.19 H Glucose 154 H Calcium 7.1 L - VTE Documentation of Mechanical Device: Intermittent pneumatic compression device Consult Discharge Plan - Plan Referrals: Bart Caceres MD [Primary Care Provider] -
[2017-06-22] MEDS: lamoTRIgine 100 MG TABLET PO SCH ×4 (02:10→20:06)
--- NOTE | 2017-06-22 07:30 | Internal Med Progress Note ---
Date of Encounter: 06/22/17 Time of Encounter: 07:20 - Assessment and plan (1) Colitis presumed infectious Current Visit: Yes Status: Acute Assessment and plan: Acute metabolic acidosis due to Severe sepsis secondary to acute colitis possibly infectious 06/20: Discontinue Zosyn and vancomycin 06/20: Start IV ciprofloxacin and continue Flagyl IV. GI panel negative. 06/21: advanced to clear liquid diet today without issue. Hold IVF. Transfer out of ICU today. Continue Cipro/Flagyl and closely monitor for fevers. 06/22: ate 100% clear liquid breakfast. advanced diet to soft for dinner will monitor appetite. Many medications of hers have narrow therapeutic window, must have close monitoring to prevent toxic levels with dehydration. (2) LENA (acute kidney injury) Current Visit: Yes Status: Resolved Assessment and plan: Resolved. 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 Qualifiers: Urinary tract infection type: site unspecified Hematuria presence: without hematuria Qualified Code(s): N39.0 - Urinary tract infection, site not specified - Subjective Interval history: Patient is nonverbal at baseline. Tmax 99.4 overnight. No acute events per nursing. - Constitutional Vitals: Temp Pulse Resp BP Pulse Ox 98.7 F 105 14 97/64 96 06/22/17 04:20 06/22/17 04:20 06/22/17 04:20 06/22/17 04:20 06/22/17 04:20 General appearance: Present: A&O X 1 Internal Medicine: Result - Labs CBC & Chem 7: 06/22/17 13:13 06/22/17 07:52 - VTE Documentation of Mechanical Device: Intermittent pneumatic compression device Consult Discharge Plan - Plan Referrals: Bart Caceres MD [Primary Care Provider] - 06/29/17 1:00 pm
[2017-06-22 08:37] LABS: Calcium 7.6 mg/dL (8.6-10.8); Potassium 3.4 mEq/L (3.5-4.5)
[2017-06-22 08:43] LABS: Basophils % 0.4 %; Eosinophils # 0.2 K/mcL (0.0-0.6); Eosinophils % 2.3 %; Hematocrit 29.8 % (35.3-44.9); Hemoglobin 9.3 g/dL (11.5-15.4); Immature Granulocytes % 2.8 % (0-4); Mean Corpuscular HGB Conc 31.2 g/dL (31.6-35.5); Mean Corpuscular Hemoglobin 28.2 pg (28.0-33.3); Mean Corpuscular Volume 90.3 fL (83.0-100.0); Mean Platelet Volume 10.1 fL (9.4-12.4); Monocytes # 0.8 K/mcL (0.0-1.3); Monocytes % 8.7 %; Neutrophils # 6.1 K/mcL (1.6-8.9); Nucleated Red Blood Cells 0.2 /100 WBC (0); Platelet Count 141 K/mcL (140-400); Red Cell Distribution Width 13.4 % (11.5-14.5); Segmented Neutrophils % 64.8 %
[2017-06-22] MEDS: Loratadine 10 MG TABLET PO SCH (10:26)
[2017-06-22] MEDS: MetroNIDAZOLE 500 MG/100 ML 500 MG/100 ML BAG IVPB SCH ×2 (10:29→16:32)
[2017-06-22] MEDS: Cholecalciferol (D-3) 1,000 UNIT TABLET PO SCH (10:29)
[2017-06-22 13:55] LABS: Hematocrit 30.1 % (35.3-44.9); Hemoglobin 9.4 g/dL (11.5-15.4)
[2017-06-22] MEDS: EVEROLIMUS 7.5 MG PO SCH (16:33)
[2017-06-22 21:38] LABS: Hematocrit 26.5 % (35.3-44.9); Hemoglobin 8.4 g/dL (11.5-15.4)
[2017-06-23] MEDS: lamoTRIgine 100 MG TABLET PO SCH ×6 (00:01→21:52)
[2017-06-23] MEDS: MetroNIDAZOLE 500 MG/100 ML 500 MG/100 ML BAG IVPB SCH ×2 (00:02→08:48)
[2017-06-23] MEDS: Cholecalciferol (D-3) 1,000 UNIT TABLET PO SCH (08:50)
[2017-06-23] MEDS: Loratadine 10 MG TABLET PO SCH (08:50)
[2017-06-23] MEDS: EVEROLIMUS 7.5 MG PO SCH (18:02)
[2017-06-23] MEDS ORDERED: 0.9 % Sodium Chloride 500 ML IVC ONE (18:07)
--- NOTE | 2017-06-23 18:08 | Internal Med Progress Note ---
Date of Encounter: 06/23/17 Time of Encounter: 14:30 - Assessment and plan (1) Colitis presumed infectious Current Visit: Yes Status: Acute Assessment and plan: Acute metabolic acidosis due to Severe sepsis secondary to acute colitis possibly infectious 06/20: Discontinue Zosyn and vancomycin 06/20: Start IV ciprofloxacin and continue Flagyl IV. GI panel negative. 06/21: advanced to clear liquid diet today without issue. Hold IVF. Transfer out of ICU today. Continue Cipro/Flagyl and closely monitor for fevers. 06/22: ate 100% clear liquid breakfast. advanced diet to soft for dinner will monitor appetite. 06/23: Appetite not as good as yesterday. Restart Topamax. Continue to monitor by mouth intake. We will give IV fluid with Topamax because her appetite is not as good as yesterday. Many medications of hers have narrow therapeutic window, must have close monitoring to prevent toxic levels with dehydration. We will restart Topamax and give some IV fluid to prevent any further toxicity. (2) LENA (acute kidney injury) Current Visit: Yes Status: Resolved Assessment and plan: Resolved. She is approaching her baseline. She still needs close monitoring (3) Metabolic acidosis Current Visit: Yes Status: Resolved Assessment and plan: Resolved. Has been off bicarbonate drip. 06/21: Can transfer out of ICU today.. 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 Tmax 99.9 overnight. No acute events per nursing. Nursing reports that her appetite is good especially with fluids. - Constitutional Vitals: Temp Pulse Resp BP Pulse Ox 98.9 F 106 16 107/68 98 06/23/17 15:25 06/23/17 15:25 06/23/17 15:25 06/23/17 15:25 06/23/17 15:25 General appearance: Present: no acute distress Exam: - Head Head exam: Present: atraumatic, normocephalic - Respiratory Respiratory exam: Present: CTAB. Absent: accessory muscle use, rales, rhonchi, wheezes - Cardiovascular Cardiovascular exam: Present: RRR, +S1, +S2. Absent: diastolic murmur, gallop, rubs, systolic murmur - GI/Abdominal GI/Abdominal exam: Present: She refuses my abdominal exam, no peritoneal signs. Absent: distended - Extremities Exam Extremities exam: Present: warm, radial pulses palpable and symmetrical. Absent : calf tenderness, cyanotic, pedal edema - Neurological Exam Neurological exam: Present: CN II-XII intact, no focal deficits. Absent: oriented X3, pronater drift, facial droop, speech deficit - Skin Skin exam: Present: dry, intact Dermatologic facial lesions compatible with tubero sclerosis Internal Medicine: Result - Labs CBC & Chem 7: 06/22/17 21:10 06/22/17 07:52 Labs: Short CBC 06/22/17 Range/Units 21:10 Hgb 8.4 L (11.5-15.4) g/dL Hct 26.5 L (35.3-44.9) % - VTE Documentation of Mechanical Device: Intermittent pneumatic compression device Consult Discharge Plan - Plan Referrals: Bart Caceres MD [Primary Care Provider] - 06/29/17 1:00 pm
[2017-06-23] MEDS ORDERED: 0.9 % Sodium Chloride 1,000 ML IVC SCH (18:15)
[2017-06-23 19:20] LABS: Basophils % 0.4 %; Eosinophils # 0.2 K/mcL (0.0-0.6); Hematocrit 27.5 % (35.3-44.9); Hemoglobin 8.6 g/dL (11.5-15.4); Immature Granulocytes % 4.8 % (0-4); Lymphocytes # 1.6 K/mcL (0.6-4.6); Lymphocytes % 20.7 %; Mean Corpuscular HGB Conc 31.3 g/dL (31.6-35.5); Mean Corpuscular Hemoglobin 28.3 pg (28.0-33.3); Mean Corpuscular Volume 90.5 fL (83.0-100.0); Mean Platelet Volume 10.1 fL (9.4-12.4); Monocytes # 0.8 K/mcL (0.0-1.3); Monocytes % 10.3 %; Nucleated Red Blood Cells 0.7 /100 WBC (0); Platelet Count 157 K/mcL (140-400); Red Blood Count 3.04 M/mcL (3.82-4.97); Red Cell Distribution Width 13.4 % (11.5-14.5); Segmented Neutrophils % 61.8 %
[2017-06-23 19:22] LABS: Neutrophils # 4.8 K/mcL (1.6-8.9)
[2017-06-23 19:31] LABS: Calcium 7.5 mg/dL (8.6-10.8)
[2017-06-23 19:40] LABS: Basophilic Stippling 1+ (Not Present); Platelet Estimate Normal (Normal); Polychromasia 1+ (Not Present)
[2017-06-23] MEDS: Topiramate 100 MG TABLET PO SCH (21:52)
[2017-06-24] MEDS ORDERED: Piperacillin/Tazobactam 3.375 GM in D5% in Water (Mini-Bag+) 100 ML IVPB SCH
[2017-06-24 05:28] LABS: Basophils % 0.4 %; Eosinophils # 0.1 K/mcL (0.0-0.6); Eosinophils % 1.6 %; Hematocrit 25.9 % (35.3-44.9); Hemoglobin 8.2 g/dL (11.5-15.4); Lymphocytes # 2.1 K/mcL (0.6-4.6); Lymphocytes % 25.9 %; Mean Corpuscular HGB Conc 31.7 g/dL (31.6-35.5); Mean Corpuscular Hemoglobin 28.5 pg (28.0-33.3); Mean Corpuscular Volume 89.9 fL (83.0-100.0); Monocytes # 0.8 K/mcL (0.0-1.3); Monocytes % 10.5 %; Neutrophils # 4.5 K/mcL (1.6-8.9); Nucleated Red Blood Cells 0.6 /100 WBC (0); Platelet Count 154 K/mcL (140-400); Red Blood Count 2.88 M/mcL (3.82-4.97); Red Cell Distribution Width 13.3 % (11.5-14.5); Segmented Neutrophils % 56.6 %
[2017-06-24 05:39] LABS: BUN/Creatinine Ratio 9 (6-26); Blood Urea Nitrogen 10 mg/dL (7-20); Calcium 7.7 mg/dL (8.6-10.8); Carbon Dioxide 21 mEq/L (19-29); Chloride 115 mEq/L (98-109); Glucose 94 mg/dL (70-99); Osmolality,Calculated 293 (280-300); Potassium 3.1 mEq/L (3.5-4.5); Sodium 142 mEq/L (136-145); eGFR For African Americans > 60 (> 60); eGFR For Non-African Americans 53 (> 60)
[2017-06-24 05:53] LABS: Platelet Estimate Normal (Normal); Reactive Lymphocytes Present (Not Present)
[2017-06-24] MEDS: Topiramate 100 MG TABLET PO SCH ×3 (08:16→21:31)
[2017-06-24] MEDS: Cholecalciferol (D-3) 1,000 UNIT TABLET PO SCH (08:17)
[2017-06-24] MEDS: Loratadine 10 MG TABLET PO SCH (08:17)
[2017-06-24] MEDS: lamoTRIgine 100 MG TABLET PO SCH ×4 (08:17→21:31)
[2017-06-24] MEDS: MetroNIDAZOLE 500 MG/100 ML 500 MG/100 ML BAG IVPB SCH (19:06)
[2017-06-24] MEDS: D5% in 0.45% NACL 1,000 ML IVC SCH (19:16)
[2017-06-24] MEDS: EVEROLIMUS 7.5 MG PO SCH (19:43)
--- NOTE | 2017-06-24 22:13 | Internal Med Progress Note ---
Date of Encounter: 06/24/17 Time of Encounter: 11:42 - Assessment and plan (1) Colitis presumed infectious Current Visit: Yes Status: Acute Assessment and plan: Acute metabolic acidosis due to Severe sepsis secondary to acute colitis possibly infectious 06/20: Discontinue Zosyn and vancomycin 06/20: Start IV ciprofloxacin and continue Flagyl IV. GI panel negative. 06/21: advanced to clear liquid diet today without issue. Hold IVF. Transfer out of ICU today. Continue Cipro/Flagyl and closely monitor for fevers. 06/22: ate 100% clear liquid breakfast. advanced diet to soft for dinner will monitor appetite. 06/23: Appetite not as good as yesterday. Topamax restarted with 500 cc of fluids. 06/24 able to finish meals with good appetite per caregiver Continue to monitor by mouth intake. - Monitor stool consistency. Possibly home tomorrow (2) LENA (acute kidney injury) Current Visit: Yes Status: Resolved (3) Metabolic acidosis Current Visit: Yes Status: Resolved (4) Metabolic encephalopathy Current Visit: Yes Status: Resolved (5) Tuberous sclerosis Current Visit: Yes Status: Chronic (6) Anemia Current Visit: Yes Status: Chronic Qualifiers: Anemia type: unspecified type Qualified Code(s): D64.9 - Anemia, unspecified (7) Urinary tract infection Current Visit: Yes Status: Acute Qualifiers: Urinary tract infection type: site unspecified Hematuria presence: without hematuria Qualified Code(s): N39.0 - Urinary tract infection, site not specified - Subjective Interval history: Patient is nonverbal at baseline. Caregiver is at bedside. She has taken care of patient for 12 years. When asked about patient clinical appearance she states that she looks like she is at her baseline. She does note that normally at home she has a diet that is mostly meat and water. Normal for her prior to admission, is stool that are hard and round, regular brown. Today stools are still loose but not as copious in amount. - Constitutional Vitals: Temp Pulse Resp BP Pulse Ox 98.7 F 90 16 93/60 96 06/24/17 19:28 06/24/17 19:28 06/24/17 19:28 06/24/17 19:28 06/24/17 19:28 General appearance: Present: no acute distress Exam: Gen: NAD, non verbal at baseline. CVS: RRR Lungs: CTAB Abdomen: patient refuses exam, but abdomen does not appear distended, she does not appear rigid. Ext: no edema. Internal Medicine: Result - Labs CBC & Chem 7: 06/24/17 05:05 06/24/17 05:05 Labs: Short CBC 06/24/17 Range/Units 05:05 WBC 8.0 (4.3-11.1) K/mcL Hgb 8.2 L (11.5-15.4) g/dL Hct 25.9 L (35.3-44.9) % Plt Count 154 (140-400) K/mcL Neutrophils # 4.5 (1.6-8.9) K/mcL BMP 06/24/17 05:05 Sodium 142 Potassium 3.1 L Chloride 115 H Carbon Dioxide 21 BUN 10 Creatinine 1.14 H Glucose 94 Calcium 7.7 L - VTE Documentation of Mechanical Device: Intermittent pneumatic compression device Consult Discharge Plan - Plan Referrals: Bart Caceres MD [Primary Care Provider] - 06/29/17 1:00 pm
[2017-06-25 04:37] LABS: Hematocrit 26.7 % (35.3-44.9); Hemoglobin 8.3 g/dL (11.5-15.4); Mean Corpuscular HGB Conc 31.1 g/dL (31.6-35.5); Mean Corpuscular Hemoglobin 28.2 pg (28.0-33.3); Mean Corpuscular Volume 90.8 fL (83.0-100.0); Mean Platelet Volume 9.7 fL (9.4-12.4); Nucleated Red Blood Cells 0.3 /100 WBC (0); Platelet Count 195 K/mcL (140-400); Red Blood Count 2.94 M/mcL (3.82-4.97); Red Cell Distribution Width 13.5 % (11.5-14.5)
[2017-06-25 04:49] LABS: BUN/Creatinine Ratio 9 (6-26); Blood Urea Nitrogen 11 mg/dL (7-20); Calcium 8.3 mg/dL (8.6-10.8); Carbon Dioxide 19 mEq/L (19-29); Chloride 114 mEq/L (98-109); Glucose 80 mg/dL (70-99); Osmolality,Calculated 290 (280-300); Potassium 4.1 mEq/L (3.5-4.5); Sodium 141 mEq/L (136-145); eGFR For African Americans > 60 (> 60); eGFR For Non-African Americans 52 (> 60)
[2017-06-25] MEDS: lamoTRIgine 100 MG TABLET PO SCH ×4 (05:17→21:05)
[2017-06-25 06:33] LABS: Lymphocytes # 2.1 K/mcL (0.6-4.6); Monocytes # 0.6 K/mcL (0.0-1.3); Neutrophils # 6.1 K/mcL (1.6-8.9); Platelet Estimate Normal (Normal)
[2017-06-25 06:34] LABS: Anisocytosis 1+ (Not Present); Poikilocytosis 1+ (Not Present); Reactive Lymphocytes Present (Not Present); Toxic Granulation Present (Not Present)
[2017-06-25] MEDS: Loratadine 10 MG TABLET PO SCH (09:36)
[2017-06-25] MEDS: Cholecalciferol (D-3) 1,000 UNIT TABLET PO SCH (09:37)
[2017-06-25] MEDS: Multivit/Ca/Min/Fe/FA 1 TAB TABLET PO SCH (09:37)
[2017-06-25] MEDS: Topiramate 100 MG TABLET PO SCH ×3 (09:37→21:05)
[2017-06-25] MEDS: EVEROLIMUS 7.5 MG PO SCH (16:35)
[2017-06-25] MEDS: metroNIDAZOLE 500 MG TABLET PO SCH ×2 (16:43→21:05)
--- NOTE | 2017-06-25 17:51 | Internal Med Progress Note ---
Date of Encounter: 06/25/17 Time of Encounter: 17:41 - Assessment and plan (1) Colitis presumed infectious Current Visit: Yes Status: Acute Assessment and plan: Acute metabolic acidosis due to Severe sepsis secondary to acute colitis possibly infectious 06/20: Discontinue Zosyn and vancomycin 06/20: Start IV ciprofloxacin and continue Flagyl IV. GI panel negative. 06/21: advanced to clear liquid diet today without issue. Hold IVF. Transfer out of ICU today. Continue Cipro/Flagyl and closely monitor for fevers. 06/22: ate 100% clear liquid breakfast. advanced diet to soft for dinner will monitor appetite. 06/23: Appetite not as good as yesterday. Topamax restarted with 500 cc of fluids. 06/24 able to finish meals with good appetite per caregiver 06/25: Lost IV site, patient refuses IV lines. unable to give Zosyn Large copious BM that was described by nursing as mucus like and clear. PO intake has remained adequate. Loose stools may still problematic Change to PO Cipro/Flagyl. Monitor stool consistency. If become more soft and less watery with normal labs , can go home tomorrow. (2) LENA (acute kidney injury) Current Visit: Yes Status: Resolved (3) Metabolic acidosis Current Visit: Yes Status: Resolved (4) Metabolic encephalopathy Current Visit: Yes Status: Resolved (5) Tuberous sclerosis Current Visit: Yes Status: Chronic (6) Anemia Current Visit: Yes Status: Chronic Qualifiers: Anemia type: unspecified type Qualified Code(s): D64.9 - Anemia, unspecified (7) Urinary tract infection Current Visit: Yes Status: Acute Qualifiers: Urinary tract infection type: site unspecified Hematuria presence: without hematuria Qualified Code(s): N39.0 - Urinary tract infection, site not specified - Subjective Interval history: Patient seemed to have normal amount of stool but she had a large BM with clear mucus. IV site has been taken off by patient. - Constitutional Vitals: Temp Pulse Resp BP Pulse Ox 98.3 F 93 18 114/79 93 06/25/17 12:24 06/25/17 12:24 06/25/17 12:24 06/25/17 12:24 06/25/17 12:24 Exam: Gen: nad, non verbal at baseline. pleasant CVS: RRR Lungs: CTAB Abd: patient limits my exam, which is common for her to do Ext: no edema, some bruising noted on lower extremities Internal Medicine: Result - Labs CBC & Chem 7: 06/25/17 04:26 06/25/17 04:26 Labs: Short CBC 06/25/17 Range/Units 04:26 WBC 8.9 (4.3-11.1) K/mcL Hgb 8.3 L (11.5-15.4) g/dL Hct 26.7 L (35.3-44.9) % Plt Count 195 (140-400) K/mcL Neutrophils # 6.1 (1.6-8.9) K/mcL BMP 06/25/17 04:26 Sodium 141 Potassium 4.1 D Chloride 114 H Carbon Dioxide 19 BUN 11 Creatinine 1.16 H Glucose 80 Calcium 8.3 L - VTE Documentation of Mechanical Device: Intermittent pneumatic compression device Consult Discharge Plan - Plan Referrals: Bart Caceres MD [Primary Care Provider] - 06/29/17 1:00 pm
[2017-06-26] MEDS: lamoTRIgine 100 MG TABLET PO SCH ×4 (04:25→20:15)
[2017-06-26 04:28] LABS: Hematocrit 27.2 % (35.3-44.9); Hemoglobin 8.5 g/dL (11.5-15.4); Mean Corpuscular HGB Conc 31.3 g/dL (31.6-35.5); Mean Corpuscular Hemoglobin 28.5 pg (28.0-33.3); Mean Corpuscular Volume 91.3 fL (83.0-100.0); Mean Platelet Volume 9.5 fL (9.4-12.4); Monocytes # 0.9 K/mcL (0.0-1.3); Nucleated Red Blood Cells 0.3 /100 WBC (0); Platelet Count 229 K/mcL (140-400); Red Blood Count 2.98 M/mcL (3.82-4.97); Red Cell Distribution Width 13.3 % (11.5-14.5)
[2017-06-26 04:40] LABS: Calcium 8.4 mg/dL (8.6-10.8); Potassium 3.7 mEq/L (3.5-4.5)
[2017-06-26 05:59] LABS: Eosinophils # 0.2 K/mcL (0.0-0.6); Lymphocytes # 2.1 K/mcL (0.6-4.6)
[2017-06-26 06:00] LABS: Platelet Estimate Normal (Normal); Reactive Lymphocytes Present (Not Present)
[2017-06-26 06:01] LABS: Eosinophils % 1.6 %; Metamyelocytes % 1.6 % (0); Microcytosis Present (Not Present); Monocytes % 9.8 %; Neutrophils # 5.8 K/mcL (1.6-8.9); Segmented Neutrophils % 63.9 %
[2017-06-26 06:02] LABS: Anisocytosis 1+ (Not Present); Polychromasia 1+ (Not Present)
[2017-06-26] MEDS: metroNIDAZOLE 500 MG TABLET PO SCH ×3 (09:21→20:15)
[2017-06-26] MEDS: Loratadine 10 MG TABLET PO SCH (09:21)
[2017-06-26] MEDS: Multivit/Ca/Min/Fe/FA 1 TAB TABLET PO SCH (09:21)
[2017-06-26] MEDS: Topiramate 100 MG TABLET PO SCH ×3 (09:22→20:15)
[2017-06-26] MEDS: Cholecalciferol (D-3) 1,000 UNIT TABLET PO SCH (09:22)
[2017-06-26] MEDS: EVEROLIMUS 7.5 MG PO SCH (18:58)
--- NOTE | 2017-06-27 04:36 | Internal Med Progress Note ---
Date of Encounter: 06/27/17 Time of Encounter: 13:34 - Assessment and plan (1) Colitis presumed infectious Current Visit: Yes Status: Acute Assessment and plan: 36 year old female presented on 06/18 with severe sepsis with metabolic acidosis secondary to colitis. She also had acute on chronic kidney injury. She has a history of tuberous sclerosis, seizure disorder controlled with topiramate, and mental retardation. She is non verbal at baseline. She lives in a fpc and presented with caregiver for lethargy, diarrhea, and decreased PO intake. She arrived to ED in severe sepsis and was admitted to ICU. She was started on IV fluids, Vanc/Zosyn/Flagyl and a bicarb drip. Acidosis and acute kidney injury resolved. She was transferred out of the ICU and eventually transitioned to Cipro and Flagyl. Stool studies were obtained and negative, including C diff. On 06/21 she was able to advance her diet, but loose watery stools have not subsided. Loose stools have been problematic but on 06/26 she had no BM and so hard to assess if she is able to make somewhat formed stools. She is taking medications with narrow therapeutic window, and so she is monitored closely to avoid medication toxicity associated with dehydration. She may possibly be discharged soon pending improvement in diarrhea. May need GI/surgery consult if symptoms persist. (2) LENA (acute kidney injury) Current Visit: Yes Status: Resolved (3) Metabolic acidosis Current Visit: Yes Status: Resolved (4) Metabolic encephalopathy Current Visit: Yes Status: Resolved (5) Tuberous sclerosis Current Visit: Yes Status: Chronic (6) Anemia Current Visit: Yes Status: Chronic Qualifiers: Anemia type: unspecified type Qualified Code(s): D64.9 - Anemia, unspecified (7) Urinary tract infection Current Visit: Yes Status: Acute Qualifiers: Urinary tract infection type: site unspecified Hematuria presence: without hematuria Qualified Code(s): N39.0 - Urinary tract infection, site not specified - Subjective Interval history: Yesterday had large bowel movement with clear liquid stool. Today she has not had a bowel movement. Appetite remains good and she is tolerating diet without issue. - Constitutional Vitals: Temp Pulse Resp BP Pulse Ox 97.6 F 93 16 90/59 95 06/27/17 00:02 06/27/17 00:02 06/27/17 00:02 06/27/17 00:02 06/27/17 00:02 Exam: General appearance: Present: A&O X 1 Exam: - Head Head exam: Present: atraumatic, normocephalic - Eye Eye exam: Present: PERRL, conjuntiva pink, sclera anicteric Pupils: Present: PERRL - Neck Neck exam general surgery: Present: supple, trachea midline. Absent: lymphadenopathy Additional comments: Kyphosis - Respiratory Respiratory exam: Present: CTAB. Absent: accessory muscle use, rales, rhonchi, wheezes - Cardiovascular Cardiovascular exam: Present: RRR, +S1, +S2. Absent: diastolic murmur, gallop, rubs, systolic murmur - GI/Abdominal GI/Abdominal exam: Present: normal bowel sounds, soft, tenderness (Diffuse abdominal tenderness, without guarding but shows discomfort), no peritoneal signs. Absent: distended - Extremities Exam Extremities exam: Present: warm, radial pulses palpable and symmetrical. Absent : calf tenderness, cyanotic, pedal edema - Neurological Exam Neurological exam: Present: CN II-XII intact, no focal deficits. Absent: oriented X3, pronater drift, facial droop, speech deficit - Skin Skin exam: Present: dry, intact Dermatologic facial lesions compatible with tubero sclerosis Internal Medicine: Result - Labs CBC & Chem 7: 06/26/17 04:14 06/26/17 04:14 Labs: Short CBC 06/26/17 Range/Units 04:14 WBC 9.1 (4.3-11.1) K/mcL Hgb 8.5 L (11.5-15.4) g/dL Hct 27.2 L (35.3-44.9) % Plt Count 229 (140-400) K/mcL Neutrophils # 5.8 (1.6-8.9) K/mcL BMP 06/26/17 04:14 Sodium 139 Potassium 3.7 Chloride 110 H Carbon Dioxide 22 BUN 11 Creatinine 1.42 H Glucose 93 Calcium 8.4 L - VTE Documentation of Mechanical Device: Intermittent pneumatic compression device Consult Discharge Plan - Plan Referrals: Bart Caceres MD [Primary Care Provider] - 06/29/17 1:00 pm
[2017-06-27] MEDS: lamoTRIgine 100 MG TABLET PO SCH ×2 (04:43→14:40)
[2017-06-27 06:31] LABS: Basophils # 0.1 K/mcL (0.0-0.2); Basophils % 0.6 %; Eosinophils # 0.1 K/mcL (0.0-0.6); Eosinophils % 1.1 %; Hematocrit 27.9 % (35.3-44.9); Hemoglobin 8.6 g/dL (11.5-15.4); Immature Granulocytes % 4.3 % (0-4); Lymphocytes # 1.9 K/mcL (0.6-4.6); Lymphocytes % 18.6 %; Mean Corpuscular HGB Conc 30.8 g/dL (31.6-35.5); Mean Corpuscular Hemoglobin 28.4 pg (28.0-33.3); Mean Corpuscular Volume 92.1 fL (83.0-100.0); Mean Platelet Volume 9.8 fL (9.4-12.4); Monocytes % 9.8 %; Neutrophils # 6.8 K/mcL (1.6-8.9); Nucleated Red Blood Cells 0.2 /100 WBC (0); Platelet Count 231 K/mcL (140-400); Red Blood Count 3.03 M/mcL (3.82-4.97); Red Cell Distribution Width 13.6 % (11.5-14.5); Segmented Neutrophils % 65.6 %
[2017-06-27 06:42] LABS: Calcium 8.5 mg/dL (8.6-10.8)
[2017-06-27] MEDS: Topiramate 100 MG TABLET PO SCH ×2 (09:00→14:39)
[2017-06-27] MEDS: Loratadine 10 MG TABLET PO SCH (09:00)
[2017-06-27] MEDS: Cholecalciferol (D-3) 1,000 UNIT TABLET PO SCH (09:00)
[2017-06-27] MEDS: metroNIDAZOLE 500 MG TABLET PO SCH (09:00)
[2017-06-27] MEDS: Multivit/Ca/Min/Fe/FA 1 TAB TABLET PO SCH (09:00)
[2017-06-27 10:53] VITALS: BP 103/64
--- NOTE | 2017-06-27 13:44 | Discharge Summary ---
Date of Encounter: 06/27/17 Time of Encounter: 13:41 - Discharge Diagnosis (1) Colitis presumed infectious Priority: Primary Status: Acute (2) Chronic kidney disease, stage III (moderate) Priority: Secondary Status: Acute (3) LENA (acute kidney injury) Priority: Secondary Status: Resolved (4) Anemia Priority: Secondary Status: Chronic Qualifiers: Anemia type: unspecified type Qualified Code(s): D64.9 - Anemia, unspecified (5) Metabolic acidosis Priority: Secondary Status: Resolved (6) Metabolic encephalopathy Priority: Secondary Status: Resolved (7) Tuberous sclerosis Priority: Secondary Status: Chronic (8) Urinary tract infection Priority: Secondary Status: Acute Qualifiers: Urinary tract infection type: acute cystitis Hematuria presence: with hematuria Qualified Code(s): N30.01 - Acute cystitis with hematuria (9) Severe sepsis Priority: Secondary Status: Resolved - Discharge Medications Prescriptions: Multivit/Ca/Min/Fe/FA [Thera M Plus] 1 tab PO DAILY #30 tablet Home Medications: Cholecalciferol (D-3) [Vitamin D] 1,000 unit PO BID 06/18/17 [History] Everolimus [Afinitor] 7.5 mg PO QPM 06/18/17 [History] FLUoxetine HCl [Prozac] 40 mg PO QAM 06/18/17 [History] Ferrous Sulfate 140 mg PO DAILY 06/18/17 [History] Guanfacine HCl 1 mg PO TID 06/18/17 [History] Loratadine [Claritin] 10 mg PO DAILY 06/18/17 [History] Lysine [l-Lysine] 500 mg PO HS 06/18/17 [History] Quetiapine Fumarate 400 mg PO TID 06/18/17 [History] Topiramate 200 mg PO TID 06/18/17 [History] lamoTRIgine [Lamictal Xr] 300 mg PO QAM 06/18/17 [History] lamoTRIgine [Lamictal Xr] 300 mg PO QPM 06/18/17 [History] lamoTRIgine [Lamictal Xr] 400 mg PO HS 06/18/17 [History] Multivit/Ca/Min/Fe/FA [Thera M Plus] 1 tab PO DAILY #30 tablet 06/27/17 [Rx] Allergies/Adverse Reactions: 3 Allergy/AdvReac Type Severity Reaction Status Date / Time No Known Allergies Allergy Verified 06/18/17 14:54 Date of admission: 06/18/17 14:47 Primary care physician: Bart Caceres MD Consults: 06/27/17 11:37 Consult to Building Analyst/Supervisor [CONS] Routine Reason for SW Consult: DC planning Discharging clinician: Harriett Ramon Anticipated date of discharge: 06/27/17 - Patient Status Disposition: Home, Self-Care Condition: Good Functional capacity at discharge: uses cane/walker Overall status at discharge: patient is progressing back to baseline - Discharge Instructions Instructions: Acute Kidney Injury (DC), Urinary Tract Infection in Women (DC) Follow Up With: Bart Caceres MD [Primary Care Provider] - 07/03/17 1:00 pm - Diet and Activity Activity: increase activity as tolerated Diet: advance to your usual diet, low fat, low cholesterol, low salt diet Hospital course: Ms. Magallanes is a 36 year old female patient with history of tuberous sclerosis, chronic kidney disease stage 3/4 who was admitted here with acute metabolic encephalopathy, acute kidney injury, acute colitis along with severe sepsis. Patient was started on treatment with intravenous antibiotics and IV fluids. She was monitored closely in ICU but did not require pressor support. She did continue to have diarrhea for over the course of next few days and was not tolerating oral diet. Stool studies were negative for bacterial infection and for C. difficile. Patient's diarrhea gradually improved and she has not had any further episodes of persistent diarrhea over the past 48 hours. She is now tolerating diet well and is feeling much better. She has completed 7 day antibiotic course. Her urine was also positive for Escherichia coli and she has completed treatment for this too. At this time, she is clinically stable for discharge back home. She does not require any further antibiotics. Her renal function has returned to baseline. She can follow up further with her primary care provider for further management. - Time Spent with Patient Total time spent providing and/or coordinating discharge services: Greater than 30 minutes (32 min) - Constitutional Vitals: Temp Pulse Resp BP Pulse Ox 98.4 F 91 14 103/64 95 06/27/17 10:50 06/27/17 10:50 06/27/17 10:50 06/27/17 10:50 06/27/17 10:50 General appearance: Present: no acute distress. Absent: answers questions appropriately - Respiratory Respiratory exam: Present: CTAB. Absent: accessory muscle use, rales, rhonchi, wheezes - Cardiovascular Cardiovascular exam: Present: RRR, +S1, +S2. Absent: diastolic murmur, gallop, rubs, systolic murmur - GI/Abdominal GI/Abdominal exam: Present: normal bowel sounds, soft, no peritoneal signs. Absent: distended, tenderness - Skin Skin exam: Present: dry, intact Additional comments: lesions on face - chronic from tuberous sclerosis - VTE Documentation of Mechanical Device: Intermittent pneumatic compression device
[2017-06-27] MEDS ORDERED: Lactobacillus 1 EACH CAP.SPRINK PO SCH (21:00)
== END 2017-06-27 17:22 | disposition home or self-care (01) | DRG 720 ==
LOC: EMEROO 09:39 → ICNU 09:39 → SUATTDRO 14:47 → ICNU 14:55 → 3ANU 06-21 18:55
PROVIDERS: ADMIT Hospitalist; ATTEND Internal Medicine

== ENCOUNTER 2017-07-11 11:41 | Inpatient (IN) ==
[2017-07-11] MEDS ORDERED: *HR* Morphine 2 MG/ML SYRINGE IVP ONE (12:33)
[2017-07-11] MEDS ORDERED: Ondansetron 4 MG/2 ML VIAL IVP ONE (12:33)
[2017-07-11] MEDS ORDERED: 0.9 % Sodium Chloride 1,000 ML IVC ONE ×2 (12:33→15:42)
--- NOTE | 2017-07-11 13:38 | Emergency Department Note ---
Disposition Clinical Impression: Colitis presumed infectious, Dehydration Diarrhea Qualifiers: Diarrhea type: unspecified type Qualified Code(s): R19.7 - Diarrhea, unspecified Disposition: Admitted As Inpatient Condition: Fair Forms: ED Satisfaction Letter Time of Disposition: 16:21 Nausea/Vomiting/Diarrhea HPI - General Chief complaint: ED Nausea/Vomiting/Diarrhea Stated complaint: Diahrrea Time Seen by Provider: 07/11/17 12:06 Source: patient, other (Caregiver) Mode of arrival: wheelchair Limitations: no limitations Nursing Notes Reviewed: Yes Vital Signs Reviewed: Yes - History of Present Illness HPI Narrative: 36-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 This occurred yesterday. They said there were 3-5 very loose stools that were like water coming out. She also vomited one time today nonbilious and nonbloody. She is is nonverbal but they see her grabbing her abdomen. She was recently admitted and discharged June 27 for pyelonephritis given antibiotics as well as colitis. There were doing fine at home there is no problems until this episode. Patient is not having any chest pain, shortness of breath according to caregiver. They have not noticed her complaining of pain anywhere else. According to caregiver there are no other complaints at this time. - Related Data Home Medications Medication Instructions Recorded Confirmed Cholecalciferol (D-3) [Vitamin D] 1,000 unit PO BID 06/18/17 06/18/17 Everolimus [Afinitor] 7.5 mg PO QPM 06/18/17 06/18/17 FLUoxetine HCl [Prozac] 40 mg PO QAM 06/18/17 06/18/17 Ferrous Sulfate 140 mg PO DAILY 06/18/17 06/18/17 Guanfacine HCl 1 mg PO TID 06/18/17 06/18/17 Loratadine [Claritin] 10 mg PO DAILY 06/18/17 06/18/17 Lysine [l-Lysine] 500 mg PO HS 06/18/17 06/18/17 Quetiapine Fumarate 400 mg PO TID 06/18/17 06/18/17 Topiramate 200 mg PO TID 06/18/17 06/18/17 lamoTRIgine [Lamictal Xr] 300 mg PO QAM 06/18/17 06/18/17 lamoTRIgine [Lamictal Xr] 300 mg PO QPM 06/18/17 06/18/17 lamoTRIgine [Lamictal Xr] 400 mg PO HS 06/18/17 06/18/17 Previous Rx's Medication Instructions Recorded Multivit/Ca/Min/Fe/FA [Thera M 1 tab PO DAILY #30 tablet 06/27/17 Plus] Allergies Allergy/AdvReac Type Severity Reaction Status Date / Time No Known Allergies Allergy Verified 07/11/17 12:25 Review of Systems: Unable to obtain due to patient being nonverbal most of history came from caregiver. All systems ED: reviewed and negative except as stated. Review of Systems: As Per HPI Past Medical History - Past Medical History Attestation: Yes The following information was validated with the patient. Medical history: Reports: seizures Psychiatric history: Reports: no psych history - Social History Smoking Status: Never smoker Smokeless Tobacco Status: No Alcohol use: Reports: none Drug use: Reports: none Physical Exam - General Limitations: no limitations General appearance: alert, in no apparent distress - Head Head exam: atraumatic, normocephalic, normal inspection - Eye Eye exam: Present: normal appearance, PERRL, EOMI - ENT ENT exam: normal exam, normal oropharynx, mucous membranes moist - Neck Neck exam: Present: normal inspection, full ROM, trachea midline - Chest Chest inspection: Present: normal inspection, symmetric chest wall rise - Respiratory Respiratory exam: Present: normal lung sounds bilaterally - Cardiovascular Cardiovascular exam: Present: regular rate, normal rhythm, normal heart sounds - Abdominal Exam Abdominal exam: Present: soft, tenderness, normal bowel sounds. Absent: distention, guarding, rebound, rigidity, Mcdaniel's sign, Rovsing's sign, tenderness at McBurney's Point Abdominal tenderness: Present: LUQ, LLQ, epigastrium, mild - Back Exam Back exam: Present: normal inspection, full ROM. Absent: tenderness, CVA tenderness (R), CVA tenderness (L) - Neurological Exam Neurological exam: Present: alert - Skin Skin exam: Present: warm, dry, intact, normal color Course Course Narrative: 28-year-old female presents to the ED with diarrhea and vomiting. Due to being recently hospitalized there is a chance for C. difficile so we will do C. difficile cultures. We will also place on contact precautions. Will get urinalysis as well as test basic abdominal labs including CBC, CMP, lipase and lactate. We will also get a CT of her abdomen and pelvis without contrast. We will get a chest x-ray due to the possible lung pathology that she has with her Lams disease. We will place an IV give IV fluids give her Zofran and morphine for pain and nausea control. Patient guardian was contacted and said it was okay for us to treat the patient. Vital Signs Temperature 98.9 F 07/11/17 11:56 Pulse Rate 121 07/11/17 11:56 Respiratory Rate 20 07/11/17 11:56 Blood Pressure 93/62 07/11/17 11:56 O2 Sat by Pulse Oximetry 97 07/11/17 11:56 Temperature 98.9 F 07/11/17 11:56 Pulse Rate 117 07/11/17 13:30 Respiratory Rate 20 07/11/17 13:30 Blood Pressure 111/79 07/11/17 13:30 O2 Sat by Pulse Oximetry 97 07/11/17 13:30 Oxygen Delivery Oxygen Delivery Room Air Nausea/Vomiting/Diarrhea - MDM Narrative Medical decision making narrative: 36-year-old female presents to the ED complaining of diarrhea and vomiting. Patient was recently admitted on June 27 for colitis and pyelonephritis she was discharged that time. She is given IV antibiotics at that time. She was doing fine after discharge they notices only one day of diarrhea today. This most likely is C. difficile so we ordered a CT of the abdomen and pelvis which showed a colitis no other abnormalities. She did have a leukocytosis and no other lab abnormalities. We will treat her with Flagyl and vancomycin. Give HER 2 liters of fluids and also treat her pain with morphine and the nausea was Zofran. Spoke with the hospitalist Dr. Rusty Condon who agreed to admit the patient. Patient is admitted in stable condition. Abdomen/Pelvis CT 07/11/17 12:34 IMPRESSION: Mural thickening of the colon extending from the hepatic flexure to the anus increasing in severity from 06/18/2017. Findings are consistent with an acute infectious or inflammatory colitis with no evidence of perforation or abscess. 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 Small nodules at the lung bases are not well visualized due to adjacent atelectasis but are grossly unchanged from the prior study. D/ / Omar Nelson MD / Omar Nelson MD Interpreting Provider: Omar Nelson MD Chest X-Ray 07/11/17 12:48 IMPRESSION: Under aeration of the lungs with bibasilar atelectasis. No convincing evidence of an acute cardiopulmonary process. D/ / Jn Fulton MD / Jn Fulton MD Interpreting Provider: Jn Fulton MD - Medical Records Medical records reviewed: Yes I reviewed the patient's medical records. - Lab Data Lab results reviewed: Yes I reviewed the patient's lab results. Result diagrams: 07/11/17 13:46 07/11/17 13:46 Lab Results 07/11/17 07/11/17 07/11/17 Range/Units 13:46 13:46 13:55 WBC 20.0 H D (4.3-11.1) K/mcL RBC 3.81 L (3.82-4.97) M/mcL Hgb 11.1 L D (11.5-15.4) g/dL Hct 35.5 (35.3-44.9) % MCV 93.2 (83.0-100.0) fL MCH 29.1 (28.0-33.3) pg MCHC 31.3 L (31.6-35.5) g/dL RDW 14.8 H (11.5-14.5) % Plt Count 212 (140-400) K/mcL MPV 9.2 L (9.4-12.4) fL Immature Gran % 1.1 (0-4) % Seg Neutrophils % 83.0 % Lymphocytes % 8.2 % Monocytes % 7.3 % Eosinophils % 0.2 % Basophils % 0.2 % Neutrophils # 16.6 H (1.6-8.9) K/mcL Lymphocytes # 1.6 (0.6-4.6) K/mcL Monocytes # 1.5 H (0.0-1.3) K/mcL Eosinophils # 0.0 (0.0-0.6) K/mcL Basophils # 0.0 (0.0-0.2) K/mcL Sodium 138 (136-145) mEq/L Potassium 3.8 (3.5-4.5) mEq/L Chloride 108 (98-109) mEq/L Carbon Dioxide 19 (19-29) mEq/L BUN 25 H (7-20) mg/dL Creatinine 1.83 H (0.57-1.11) mg/dL Est GFR ( Amer) 37 L (> 60) Est GFR (Non-Af Amer) 31 L (> 60) BUN/Creatinine Ratio 14 (6-26) Glucose 160 H (70-99) mg/dL Calculated Osmolality 294 (280-300) Calcium 8.2 L (8.6-10.8) mg/dL Total Bilirubin 0.4 (0.2-1.2) mg/dL AST 12 (5-34) Units/L ALT 9 (0-55) Units/L Alkaline Phosphatase 123 (38-126) Units/L Serum Total Protein 6.6 (6.0-8.3) g/dL Albumin 2.3 L (3.5-5.0) g/dL Globulin 4.3 H (2.4-3.5) g/dL Albumin/Globulin Ratio 0.5 L (1.1-2.2) Lipase < 10 (8-78) Units/L Urine Color (Yellow) Urine Clarity (Clear) Urine pH (5.0-8.0) pH Units Ur Specific [place] (1.010-1.025) Urine Protein (Neg-Trace) mg/dL Urine Glucose (UA) (Normal) mg/dL Urine Ketones (Negative) mg/dL Urine Blood (Negative) Urine Nitrite (Negative) Urine Bilirubin (Negative) Urine Urobilinogen (Normal) mg/dL Ur Leukocyte Esterase (Negative) Urine Microscopic RBC (0-3) per hpf Urine Microscopic WBC (0-3) per hpf Ur Squamous Epith Cells (None-Few) per lpf Urine Bacteria (None-Few) per hpf Hyaline Casts (None-Few) per lpf Granular Casts (None Seen) per lpf Urine Mucus (Few) Ur Culture Indicated? (NO) Urine Test Negative (Negative) 07/11/17 Range/Units 14:00 WBC (4.3-11.1) K/mcL RBC (3.82-4.97) M/mcL Hgb (11.5-15.4) g/dL Hct (35.3-44.9) % MCV (83.0-100.0) fL MCH (28.0-33.3) pg MCHC (31.6-35.5) g/dL RDW (11.5-14.5) % Plt Count (140-400) K/mcL MPV (9.4-12.4) fL Immature Gran % (0-4) % Seg Neutrophils % % Lymphocytes % % Monocytes % % Eosinophils % % Basophils % % Neutrophils # (1.6-8.9) K/mcL Lymphocytes # (0.6-4.6) K/mcL Monocytes # (0.0-1.3) K/mcL Eosinophils # (0.0-0.6) K/mcL Basophils # (0.0-0.2) K/mcL Sodium (136-145) mEq/L Potassium (3.5-4.5) mEq/L Chloride (98-109) mEq/L Carbon Dioxide (19-29) mEq/L BUN (7-20) mg/dL Creatinine (0.57-1.11) mg/dL Est GFR ( Amer) (> 60) Est GFR (Non-Af Amer) (> 60) BUN/Creatinine Ratio (6-26) Glucose (70-99) mg/dL Calculated Osmolality (280-300) Calcium (8.6-10.8) mg/dL Total Bilirubin (0.2-1.2) mg/dL AST (5-34) Units/L ALT (0-55) Units/L Alkaline Phosphatase (38-126) Units/L Serum Total Protein (6.0-8.3) g/dL Albumin (3.5-5.0) g/dL Globulin (2.4-3.5) g/dL Albumin/Globulin Ratio (1.1-2.2) Lipase (8-78) Units/L Urine Color Yellow (Yellow) Urine Clarity Cloudy A (Clear) Urine pH 5.5 (5.0-8.0) pH Units Ur Specific [place] 1.023 (1.010-1.025) Urine Protein 30 H (Neg-Trace) mg/dL Urine Glucose (UA) Normal (Normal) mg/dL Urine Ketones Negative (Negative) mg/dL Urine Blood Negative (Negative) Urine Nitrite Negative (Negative) Urine Bilirubin Small H (Negative) Urine Urobilinogen Normal (Normal) mg/dL Ur Leukocyte Esterase Negative (Negative) Urine Microscopic RBC 0-3 (0-3) per hpf Urine Microscopic WBC 0-3 (0-3) per hpf Ur Squamous Epith Cells Many H (None-Few) per lpf Urine Bacteria Few (None-Few) per hpf Hyaline Casts Few (None-Few) per lpf Granular Casts Few H (None Seen) per lpf Urine Mucus Moderate H (Few) Ur Culture Indicated? NO (NO) Urine Test (Negative) - Radiology Data Radiology results reviewed: Yes I reviewed the patient's radiology results. - EKG Data EKG attestation: Yes I reviewed and interpreted this EKG. Attestation Statement - Attestation Attestation: I, Tano Lopez DO, examined this patient [id number] and my medical decision-making was reviewed with Dr. Rene Gonzalez, Resident Physician. I agree with the documented findings, disposition and treatment plan as described except to the extent set forth below. Please see my progress notes for details. 36-year-old female who has chronic medical issues presents to emergency room with decreased by mouth intake and generalized malaise and weakness according to the caregivers. They are concerned that she may have another infection. She was just treated for urinary tract infection and required prolonged hospitalization. She had diarrhea at the time of discharge home and then his had reemergence of persistent watery diarrhea here over the last several days. She has been on multiple antibiotics over the last couple weeks. Patient is concerning for Clostridium difficile as well as urinary tract infection and generalized malaise secondary to dehydration. Repeat imaging studies of the abdomen along with CBC chemistry urinalysis electrolytes and stool sample will be collected at this time. Fluid hydration will be started. Unknown etiology to the presentation of this time so we will refrain from starting antibiotics until we have more definitive source. Patient otherwise is tachycardic but afebrile on presentation. Her exam is otherwise unremarkable. Caregivers at the bedside and she agrees with course of care. See detailed documentation of physical exam, medical intervention, medical decision-making and disposition and the resident physician's note 1600 Patient found to have progression of colitis in the abdomen along with diarrhea concern is noted for infectious colitis at this time. Antibiotic regimen ordered. Patient will be admitted for diarrhea colitis and elevated white blood cell count. Patient is otherwise stable. Family comfortable with the plan. Admission process to be converted
[2017-07-11 13:55] LABS: Basophils % 0.2 %; Eosinophils % 0.2 %; Hematocrit 35.5 % (35.3-44.9); Immature Granulocytes % 1.1 % (0-4); Lymphocytes # 1.6 K/mcL (0.6-4.6); Lymphocytes % 8.2 %; Mean Corpuscular HGB Conc 31.3 g/dL (31.6-35.5); Mean Corpuscular Hemoglobin 29.1 pg (28.0-33.3); Mean Corpuscular Volume 93.2 fL (83.0-100.0); Mean Platelet Volume 9.2 fL (9.4-12.4); Monocytes # 1.5 K/mcL (0.0-1.3); Monocytes % 7.3 %; Neutrophils # 16.6 K/mcL (1.6-8.9); Platelet Count 212 K/mcL (140-400); Red Blood Count 3.81 M/mcL (3.82-4.97); Red Cell Distribution Width 14.8 % (11.5-14.5)
[2017-07-11 14:11] LABS: Hemoglobin 11.1 g/dL (11.5-15.4)
[2017-07-11 14:13] LABS: Alanine Aminotransferase 9 Units/L (0-55); Albumin 2.3 g/dL (3.5-5.0); Albumin/Globulin Ratio 0.5 (1.1-2.2); Alkaline Phosphatase 123 Units/L (38-126); Aspartate Amino Transferase 12 Units/L (5-34); BUN/Creatinine Ratio 14 (6-26); Bilirubin,Total 0.4 mg/dL (0.2-1.2); Blood Urea Nitrogen 25 mg/dL (7-20); Calcium 8.2 mg/dL (8.6-10.8); Carbon Dioxide 19 mEq/L (19-29); Chloride 108 mEq/L (98-109); Globulin 4.3 g/dL (2.4-3.5); Glucose 160 mg/dL (70-99); Osmolality,Calculated 294 (280-300); Sodium 138 mEq/L (136-145); Total Protein 6.6 g/dL (6.0-8.3); eGFR For African Americans 37 (> 60); eGFR For Non-African Americans 31 (> 60)
[2017-07-11 14:14] LABS: Lipase < 10 Units/L (8-78)
[2017-07-11 14:15] LABS: Potassium 3.8 mEq/L (3.5-4.5)
[2017-07-11 14:16] LABS: Bilirubin,Urine Small (Negative); Blood,Urine Negative (Negative); Clarity,Urine Cloudy (Clear); Color,Urine Yellow (Yellow); Glucose,Urine (UA) Normal (Normal); Ketones,Urine Negative (Negative); Leukocyte Esterase,Urine Negative (Negative); Nitrite,Urine Negative (Negative); PH,Urine 5.5 pH Units (5.0-8.0); Protein,Urine 30 mg/dL (Neg-Trace); Specific Gravity,Urine 1.023 (1.010-1.025); Urobilinogen,Urine Normal (Normal)
[2017-07-11 14:22] LABS: Hyaline Casts,Urine Few per lpf (None-Few); RBC,Urine 0-3 per hpf (0-3); Squamous Epithelial Cell,Urine Many per lpf (None-Few); WBC,Urine 0-3 per hpf (0-3)
[2017-07-11 14:28] LABS: Granular Casts,Urine Few per lpf (None Seen)
[2017-07-11 14:29] LABS: Bacteria,Urine Few per hpf (None-Few); Mucus,Urine Moderate (Few)
[2017-07-11] MEDS ORDERED: MetroNIDAZOLE 500 MG/100 ML 500 MG/100 ML BAG IVPB ONE (15:40)
[2017-07-11] MEDS ORDERED: Vancomycin Oral Soln 250 MG/5 ML UDC PO ONE (15:42)
[2017-07-11] MEDS ORDERED: Naloxone 0.4 MG/ML INJ IVP PRN (17:16)
--- NOTE | 2017-07-11 17:16 | Internal Med History&Physical ---
Date of Encounter: 07/11/17 Time of Encounter: 17:15 Assessment and Plan (1) Colitis presumed infectious Current visit: Yes Status: Acute Will check stool GI panel for infection. We will treat with IV fluids. Ceftriaxone and Flagyl to treat bacterial causes of infectious colitis. We will also check ESR and CRP. She will need colonoscopy at some point hopefully in the next 4-6 weeks. High-risk for complications. (2) Clostridium difficile colitis Current visit: Yes Status: Suspected History of recent antibiotic use. High-risk for C. difficile colitis. We will check stool for C. difficile. We will treat with oral vancomycin per IDSA guidelines. (3) LENA (acute kidney injury) Current visit: Yes Status: Acute Acute kidney injury on chronic kidney disease stage III. Due to diarrhea. Will treat with IV hydration. (4) Anemia Current visit: Yes Status: Chronic Hemoglobin higher than baseline most likely due to hemoconcentration. Will monitor blood counts closely. Qualifiers: Anemia type: due to chronic kidney disease Chronic kidney disease stage: stage 3 (moderate) Qualified Code(s): N18.3 - Chronic kidney disease, stage 3 (moderate); D63.1 - Anemia in chronic kidney disease; D63.1 - Anemia in chronic kidney disease (5) Tuberous sclerosis Current visit: Yes Status: Chronic Continue home medications for this condition. (6) DVT prophylaxis Current visit: Yes Status: Acute With subcutaneous heparin Internal Medicine - H&P: HPI Chief complaint: Diarrhea Admitted From: Emergency Dept Plans for Post Hospital Care: Home History of present illness: Ms. 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 History has been obtained from patient's caregiver as patient is nonverbal was present at bedside. Patient had been admitted here last month and was discharged home after being treated for acute urinary tract infection and colitis. At that time stool studies were negative for any infectious causes including C. difficile. She had clinically improved and and was doing well overall except for mild generalized weakness. However since yesterday she has been having increased malaise and diarrhea. She had about 4 episodes of loose bowel movements yesterday and 2 episodes last night. She has continued to have loose stools today and was brought in. Patient does not communicate about pain even at baseline but according to the caregiver there noticed that she is unusually withdrawn as she normally gets when she is sick. She did spit up part of a cereal bar that she ate this morning. Past Med Surg Social Fam HX - Past Medical History Attestation: Yes The following information was validated with the patient. Source: old records reviewed Medical history: seizures Psychiatric history: no psych history - Social History Smoking Status: Never smoker Smokeless Tobacco Status: No Alcohol use: none Drug use: none - Additional Family History Additional family history: Reviewed and found to be non contributory Internal Medicine - H&P: Meds Cholecalciferol (D-3) [Vitamin D] 1,000 unit PO BID 06/18/17 [History] Everolimus [Afinitor] 7.5 mg PO QPM 06/18/17 [History] FLUoxetine HCl [Prozac] 40 mg PO QAM 06/18/17 [History] Ferrous Sulfate 140 mg PO DAILY 06/18/17 [History] Guanfacine HCl 1 mg PO TID 06/18/17 [History] Loratadine [Claritin] 10 mg PO DAILY 06/18/17 [History] Lysine [l-Lysine] 500 mg PO HS 06/18/17 [History] Quetiapine Fumarate 400 mg PO TID 06/18/17 [History] Topiramate 200 mg PO TID 06/18/17 [History] lamoTRIgine [Lamictal Xr] 300 mg PO QAM 06/18/17 [History] lamoTRIgine [Lamictal Xr] 300 mg PO QPM 06/18/17 [History] lamoTRIgine [Lamictal Xr] 400 mg PO HS 06/18/17 [History] Multivit/Ca/Min/Fe/FA [Thera M Plus] 1 tab PO DAILY #30 tablet 06/27/17 [Rx] 3 Allergy/AdvReac Type Severity Reaction Status Date / Time No Known Allergies Allergy Verified 07/11/17 12:25 All Systems PM: A 10-system review of systems was performed and is negative for pertinent findings except as documented above in the HPI. Review of systems: Obtained from caregiver - Constitutional Constitutional: malaise, no chills, no fever(s), no night sweats - EENT Eyes: no change in vision, no discharge, no pain, no photophobia Ears: no ear discharge, no ear pain, no tinnitus Nose, mouth and throat: no dysphagia, no nasal discharge, no neck pain, no sore throat - Cardiovascular Cardiovascular ROS IM: no chest pain, no diaphoresis, no dyspnea, no lightheadedness, no palpitations, no syncope - Respiratory Respiratory: no cough, no dyspnea, no wheezing, no excessive phlegm production - Gastrointestinal Gastrointestinal: diarrhea, vomiting, no abdominal pain, no hematemesis, no hematochezia, no melena, no nausea - Genitourinary Genitourinary: no change in urinary stream, no dysuria, no flank pain, no hematuria - Musculoskeletal Musculoskeletal ROS IM: no numbness, no tingling - Integumentary Integumentary IM: no rash, no unusual bruising - Neurological Neurological ROS: no confusion, no convulsions, no focal weakness, no numbness, no tingling, no tremor(s) - Hematologic/Lymphatic Hematologic/Lymphatic: no easy bruising - Constitutional Vitals: Temp Pulse Resp BP Pulse Ox 98.9 F 117 20 111/79 97 07/11/17 11:56 07/11/17 13:30 07/11/17 13:30 07/11/17 13:30 07/11/17 13:30 General appearance: Absent: answers questions appropriately Exam: patient non verbal at baseline - ENT Additional comments: Lesions of tuberous sclerosis present on face and wants - Neck Neck exam general surgery: Present: supple, trachea midline. Absent: lymphadenopathy - Respiratory Respiratory exam: Present: CTAB. Absent: accessory muscle use, rales, rhonchi, wheezes - Cardiovascular Cardiovascular exam: Present: RRR, +S1, +S2. Absent: diastolic murmur, gallop, rubs, systolic murmur - GI/Abdominal GI/Abdominal exam: Present: distended, normal bowel sounds, soft, no peritoneal signs. Absent: tenderness - Extremities Exam Extremities exam: Present: pedal edema (Chronic bilateral), warm, radial pulses palpable and symmetrical. Absent: calf tenderness, cyanotic - Neurological Exam Neurological exam: Present: alert, no focal deficits. Absent: facial droop, speech deficit - Skin Skin exam: Present: dry, intact Additional comments: Skin lesions from tuberous sclerosis Internal Med - H&P Results - Labs CBC & Chem 7: 07/11/17 13:46 07/11/17 13:46 - Impressions Impressions Abdomen/Pelvis CT 07/11/17 12:34 IMPRESSION: Mural thickening of the colon extending from the hepatic flexure to the anus increasing in severity from 06/18/2017. Findings are consistent with an acute infectious or inflammatory colitis with no evidence of perforation or abscess. 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 Small nodules at the lung bases are not well visualized due to adjacent atelectasis but are grossly unchanged from the prior study. D/ / Omar Nelson MD / Omar Nelson MD Interpreting Provider: Omar Nelson MD Chest X-Ray 07/11/17 12:48 IMPRESSION: Under aeration of the lungs with bibasilar atelectasis. No convincing evidence of an acute cardiopulmonary process. D/ / Jn Fulton MD / Jn Fulton MD Interpreting Provider: Jn Fulton MD
[2017-07-11 17:54] LABS: C-Reactive Protein 228 mg/L (Less than 5)
[2017-07-11] MEDS ORDERED: EVEROLIMUS 7.5 MG PO SCH (18:00)
[2017-07-11] MEDS: 0.9 % Sodium Chloride 1,000 ML IVC SCH (18:44)
[2017-07-11] MEDS: cefTRIAXone 1,000 MG in Water for inj. (sterile) 10 ML IVPB SCH (18:50)
[2017-07-11] MEDS: lamoTRIgine 100 MG TABLET PO SCH ×2 (18:50→21:04)
[2017-07-11] MEDS: *HR* Heparin 5,000 UNIT/ML VIAL SQ SCH (18:50)
[2017-07-11] MEDS: Acetaminophen 325 MG TABLET PO PRN (19:40)
[2017-07-11] MEDS: Topiramate 100 MG TABLET PO SCH (20:55)
[2017-07-11] MEDS: Cholecalciferol (D-3) 1,000 UNIT TABLET PO SCH (20:57)
[2017-07-11] MEDS ORDERED: (Lysine [L-Lysine] 500 MG) PO SCH (21:00)
[2017-07-11] MEDS ORDERED: QUETIAPINE FUMARATE 400 MG PO SCH (21:00)
[2017-07-11] MEDS: Vancomycin Oral Soln 250 MG/5 ML UDC PO SCH (21:05)
[2017-07-12] MEDS: MetroNIDAZOLE 500 MG/100 ML 500 MG/100 ML BAG IVPB SCH ×3 (00:21→16:17)
[2017-07-12 05:40] LABS: Basophils # 0.1 K/mcL (0.0-0.2); Basophils % 0.2 %; Calcium 7.2 mg/dL (8.6-10.8); Eosinophils % 0.2 %; Hematocrit 29.7 % (35.3-44.9); Immature Granulocytes % 1.3 % (0-4); Lymphocytes # 1.4 K/mcL (0.6-4.6); Lymphocytes % 6.7 %; Mean Corpuscular Hemoglobin 29.2 pg (28.0-33.3); Mean Corpuscular Volume 94.3 fL (83.0-100.0); Mean Platelet Volume 9.7 fL (9.4-12.4); Monocytes # 1.8 K/mcL (0.0-1.3); Monocytes % 8.4 %; Neutrophils # 17.5 K/mcL (1.6-8.9); Platelet Count 200 K/mcL (140-400); Potassium 3.6 mEq/L (3.5-4.5); Red Blood Count 3.15 M/mcL (3.82-4.97); Red Cell Distribution Width 14.7 % (11.5-14.5); Segmented Neutrophils % 83.2 %
[2017-07-12] MEDS: *HR* Heparin 5,000 UNIT/ML VIAL SQ SCH ×2 (05:42→18:37)
[2017-07-12] MEDS: 0.9 % Sodium Chloride 1,000 ML IVC SCH (05:43)
[2017-07-12 05:48] LABS: Hemoglobin 9.2 g/dL (11.5-15.4)
[2017-07-12] MEDS ORDERED: FERROUS SULFATE 140 MG PO SCH (09:00)
[2017-07-12] MEDS: D5% in 0.45% NACL 1,000 ML IVC SCH (09:01)
[2017-07-12] MEDS: cefTRIAXone 1,000 MG in Water for inj. (sterile) 10 ML IVPB SCH (09:03)
[2017-07-12] MEDS: FLUoxetine 20 MG CAPSULE PO SCH (09:05)
[2017-07-12] MEDS: Vancomycin Oral Soln 250 MG/5 ML UDC PO SCH ×4 (09:05→21:24)
[2017-07-12] MEDS: Loratadine 10 MG TABLET PO SCH (09:05)
[2017-07-12] MEDS: Cholecalciferol (D-3) 1,000 UNIT TABLET PO SCH ×2 (09:05→21:25)
[2017-07-12] MEDS: Topiramate 100 MG TABLET PO SCH ×3 (09:06→21:26)
[2017-07-12] MEDS: Multivit/Ca/Min/Fe/FA 1 TAB TABLET PO SCH (09:06)
--- NOTE | 2017-07-12 11:09 | Gastroenterology Consult Note ---
<Edvin Maravilla - Last Filed: 07/12/17 11:07> Date of Encounter: 07/12/17 Time of Encounter: 10:40 - Assessment and plan (1) Colitis Status: Acute Assessment and plan: CT A/P with mural thickening of the colon extending from the hepatic flexure to the anus increased in severity from 06/18/2017. Findings consistent with an acute infectious or inflammatory colitis no evidence of perforation or abscess. She was started on Ceftriaxone and Flagyl. Plan for colonoscopy tomorrow to rule out ischemic versus infectious colitis. Clear liquid diet today, no red or purple. NPO at midnight. If unable tolerate NuLytely please use MiraLAX prep. If not clear by 6 AM, give 2 tap water enemas. Have been unable to reach POA: Asuncion Triplett at [phone] (2) Diarrhea Status: Acute Assessment and plan: Patient with several episodes of diarrhea prior to admission. Stool testing was ordered but was not completed as stool sample was not liquid. Plan for colonoscopy tomorrow. Qualifiers: Diarrhea type: unspecified type Qualified Code(s): R19.7 - Diarrhea, unspecified - Time Spent With Patient Total time spent is greater than 50% in coordination of care (as documented) at patient's floor/unit and/or counseling patient: GI History of Present Illness - Data of Consult Patient: new to practice Consult date: 07/12/17 Requesting Physician: Harriett Ramon MD - Consult Narrative Reason for consult: Recurrent colitis History of present illness: Ms. Magallanes is a 36 year old female with PMHx of tuberous sclerosis who is nonverbal at baseline and presented to the ER with complaints of diarrhea. Patient had been admitted here last month and was discharged home after being treated for acute urinary tract infection and colitis. Stool studies were negative on 06/19/2017. She had 6 episodes of diarrhea the day prior to admission. CT A/P with mural thickening of the colon extending from the hepatic flexure to the anus increased in severity from 06/18/2017. Findings consistent with an acute infectious or inflammatory colitis no evidence of perforation or abscess. She was started on Ceftriaxone and Flagyl. Hgb on admission was 11.1 and this AM Hgb 9.2. Procedures: None NSAIDs: None Anticoagulation: None Past Med Surg Social Fam HX - Past Medical History Medical history: seizures Psychiatric history: no psych history - Social History Smoking Status: Never smoker Smokeless Tobacco Status: No Alcohol use: none Drug use: none ROS unobtainable: due to mental status - Constitutional Vitals: Temp Pulse Resp BP Pulse Ox 97.6 F 106 16 102/66 98 07/12/17 10:10 07/12/17 10:10 07/12/17 10:10 07/12/17 10:10 07/12/17 10:10 General appearance: Present: no acute distress Exam: Pt is nonverbal. - Head Head exam: Present: atraumatic, normocephalic - Eye Eye exam: Present: normal appearance, sclera anicteric - ENT Additional comments: Lesions from tuberous sclerosis - Neck Neck exam general surgery: Present: normal inspection, trachea midline - Respiratory Respiratory exam: Present: CTAB. Absent: rales, rhonchi - Cardiovascular Cardiovascular exam: Present: RRR, +S1, +S2 - GI/Abdominal GI/Abdominal exam: Present: soft, no peritoneal signs. Absent: distended, firm , guarding, tenderness - Rectal Rectal exam: Present: deferred - Extremities Exam Extremities exam: Present: warm - Neurological Exam Neurological exam: Present: no focal deficits - Psychiatric Psychiatric exam: Present: normal affect, normal mood - Skin Skin exam: Present: dry, warm Additional comments: lesions due to tuberous sclerosis Results - Labs CBC & Chem 7: 07/12/17 05:13 07/12/17 05:13 Labs: Last Result ESR 52 mm/hr (0-15) H 07/11/17 13:46 Calcium 7.2 mg/dL (8.6-10.8) L 07/12/17 05:13 C-Reactive Protein 228 mg/L (Less than 5) H 07/11/17 13:46 Entire Visit Hgb 9.2 g/dL (11.5-15.4) L D 07/12/17 05:13 Hct 29.7 % (35.3-44.9) L 07/12/17 05:13 Total Bilirubin 0.4 mg/dL (0.2-1.2) 07/11/17 13:46 AST 12 Units/L (5-34) 07/11/17 13:46 ALT 9 Units/L (0-55) 07/11/17 13:46 Lipase < 10 Units/L (8-78) 07/11/17 13:46 Consult Discharge Plan - Plan Instructions: Clostridium Difficile Infection (DC) Additional Instructions: Follow-up appointments: If there is not an appointment listed below, please call your physician and schedule a follow-up appointment. If you have congestive heart failure and your symptoms return, make an appointment with your physician. Medication List: Carry an up to date list of medications you are taking at all time. We have given you an updated medication list including any new medications that you have been prescribed. Please provide that list to your primary provider Symptoms: If your condition changes or you experience any of the following symptoms, notify your physician immediately: Unusual or worsening pain, fever, persistent nausea and vomiting, bleeding, increase in swelling (especially in your legs), sudden weight gain, extreme dizziness, chest pain, increased drainage or redness from a wound or incision. Go to the emergency department if you experience a problem with breathing. Weights: If you have a history of swelling or shortness of breath, weigh yourself daily and notify your physician if you have a weight gain of two or more pounds in one day or 5 or more pounds in a week. If you experience any of the warning signs for stroke: Sudden numbness or weakness of the face, arm or leg; especially on one side of the body, sudden confusion, trouble speaking or understanding, sudden trouble seeing in one or both eyes, sudden trouble walking, dizziness, loss of balance or coordination, sudden sever headache with no cause; Call 911 or go to the emergency room. Stroke is a medical emergency. Some risk factors for stroke: Age, cigarette smoking, diabetes, excessive alcohol consumption, family history , high blood pressure, overweight, physical inactivity, prior stroke, heart attack, diagnosis of carotid artery stenosis or other artery disease. If you smoke, STOP: Smoking or tobacco use significantly increases your risk of heart and lung disease. Your chance of disease greatly increases if you continue to smoke. For more information, call the [place] tobacco quit line for smoking cessation QUIT-NOW ( ) Referrals: Bart Caceres MD [Primary Care Provider] - (in 1 week) Prescriptions: Fidaxomicin [Dificid] 200 mg PO BID #16 tablet Lactobacillus [Culturelle] 1 each PO BID #20 cap.marissa Potassium Chloride Elixir [Potassium Chloride] 20 meq PO DAILY #20 <Aquilino Escalona - Last Filed: 07/18/17 16:10> Date of Encounter: 07/12/17 Time of Encounter: 13:00 - Time Spent With Patient Total time spent is greater than 50% in coordination of care (as documented) at patient's floor/unit and/or counseling patient: GI History of Present Illness - Data of Consult Requesting Physician: Harriett Ramon MD - Consult Narrative History of present illness: Ms. Magallanes is a 36 year old female - Constitutional Vitals: Temp Pulse Resp BP Pulse Ox 97.6 F 99 14 94/65 95 07/17/17 03:54 07/17/17 03:54 07/17/17 03:54 07/17/17 03:54 07/17/17 03:54 Results - Labs CBC & Chem 7: 07/17/17 07:40 07/17/17 07:40 Labs: Last Result ESR 52 mm/hr (0-15) H 07/11/17 13:46 Calcium 7.2 mg/dL (8.6-10.8) L 07/17/17 07:40 C-Reactive Protein 228 mg/L (Less than 5) H 07/11/17 13:46 Entire Visit Hgb 10.3 g/dL (11.5-15.4) L 07/17/17 07:40 Hct 32.5 % (35.3-44.9) L 07/17/17 07:40 Total Bilirubin 0.2 mg/dL (0.2-1.2) 07/15/17 03:56 AST 36 Units/L (5-34) H 07/15/17 03:56 ALT 21 Units/L (0-55) 07/15/17 03:56 Lipase < 10 Units/L (8-78) 07/11/17 13:46 - Attending Attestation I examined this patient and my medical decision-making was reviewed with the Resident Physician. I agree with the documented findings, disposition and treatment plan as described except to the extent set forth below.
[2017-07-12] MEDS: lamoTRIgine 100 MG TABLET PO SCH ×3 (11:44→21:25)
--- NOTE | 2017-07-12 15:52 | Internal Med Progress Note ---
Date of Encounter: 07/12/17 Time of Encounter: 11:20 - Assessment and plan (1) Colitis presumed infectious Current Visit: Yes Status: Acute Assessment and plan: Patient having formed stools. Unable to read and GI panel or C. difficile toxin at this time. Discussed with gastroenterology. Plan to do colonoscopy tomorrow. Continue antibiotics for now. Moderate risk for complications. (2) Clostridium difficile colitis Current Visit: Yes Status: Suspected Assessment and plan: Patient having formed stools. If no further episodes of diarrhea, we will stop oral vancomycin as C. difficile will be ruled out. (3) LENA (acute kidney injury) Current Visit: Yes Status: Acute Assessment and plan: Improving. Due to dehydration and diarrhea. (4) Anemia Current Visit: Yes Status: Chronic Assessment and plan: Hemoglobin 9.2 today. Likely from hemodilution. We will continue to monitor for now. Qualifiers: Anemia type: due to chronic kidney disease Chronic kidney disease stage: stage 3 (moderate) Qualified Code(s): N18.3 - Chronic kidney disease, stage 3 (moderate); D63.1 - Anemia in chronic kidney disease; D63.1 - Anemia in chronic kidney disease (5) Tuberous sclerosis Current Visit: Yes Status: Chronic Assessment and plan: Chronic. Continue home medications if available. (6) DVT prophylaxis Current Visit: Yes Status: Acute Assessment and plan: With subcutaneous heparin - Subjective Interval history: Patient is awake and lying in bed. Appears comfortable. Nonverbal at baseline. - Constitutional Vitals: Temp Pulse Resp BP Pulse Ox 97.9 F 118 16 91/58 94 07/12/17 14:00 07/12/17 14:00 07/12/17 14:00 07/12/17 14:00 07/12/17 14:00 General appearance: Present: cooperative. Absent: answers questions appropriately - ENT Additional comments: Skin lesions due to tuberous sclerosis - Neck Neck exam general surgery: Present: supple, trachea midline. Absent: lymphadenopathy - Respiratory Respiratory exam: Present: CTAB. Absent: accessory muscle use, rales, rhonchi, wheezes - Cardiovascular Cardiovascular exam: Present: RRR, +S1, +S2. Absent: diastolic murmur, gallop, rubs, systolic murmur - GI/Abdominal GI/Abdominal exam: Present: normal bowel sounds, soft, no peritoneal signs. Absent: distended, tenderness - Extremities Exam Extremities exam: Present: pedal edema - Neurological Exam Neurological exam: Present: no focal deficits. Absent: facial droop, speech deficit Internal Medicine: Result - Labs CBC & Chem 7: 07/12/17 05:13 07/12/17 05:13 Labs: Short CBC 07/12/17 Range/Units 05:13 WBC 21.0 H (4.3-11.1) K/mcL Hgb 9.2 L D (11.5-15.4) g/dL Hct 29.7 L (35.3-44.9) % Plt Count 200 (140-400) K/mcL Neutrophils # 17.5 H (1.6-8.9) K/mcL BMP 07/12/17 05:13 Sodium 141 Potassium 3.6 Chloride 116 H Carbon Dioxide 17 L BUN 24 H Creatinine 1.59 H Glucose 115 H Calcium 7.2 L Consult Discharge Plan - Plan Referrals: Bart Caceres MD [Primary Care Provider] -
[2017-07-12] MEDS ORDERED: Polyethylene Glycol 3350 255 GM POWDER PO ONE (17:00)
[2017-07-12 20:29] LABS: Adenovirus F 40/41 PCR Not detected (Not detect); Astrovirus PCR Not detected (Not detect); C.difficile Toxin A/B by PCR See reflex test (Not detect); Campylobacter by PCR Not detected (Not detect); Cryptosporidium by PCR Not detected (Not detect); Cyclospora cayetanensis PCR Not detected (Not detect); E. coli O157 by PCR Not detected (Not detect); Entamoeba histolytica PCR Not detected (Not detect); Enteroaggregative E.coli(EAEC) Not detected (Not detect); Enteropathogenic E.coli(EPEC) Not detected (Not detect); Enterotoxigenic E.coli (ETEC) Not detected (Not detect); Giardia lamblia PCR Not detected (Not detect); Norovirus GI/GII PCR Not detected (Not detect); Plesiomonas shigelloides PCR Not detected (Not detect); Rotavirus A PCR Not detected (Not detect); Salmonella PCR Not detected (Not detect); Sapovirus PCR Not detected (Not detect); Shig/EnteroinvasiveE coli EIEC Not detected (Not detect); Shigalike tox-prod E coli STEC Not detected (Not detect); Vibrio PCR Not detected (Not detect); Vibrio cholerae PCR Not detected (Not detect); Yersinia enterocolitica PCR Not detected (Not detect)
[2017-07-13] MEDS: MetroNIDAZOLE 500 MG/100 ML 500 MG/100 ML BAG IVPB SCH ×4 (00:03→23:58)
[2017-07-13] MEDS: Acetaminophen 325 MG TABLET PO PRN (00:03)
[2017-07-13 05:04] LABS: Monocytes % 11.5 %
[2017-07-13 05:05] LABS: Hematocrit 36.8 % (35.3-44.9); Hemoglobin 11.2 g/dL (11.5-15.4); Immature Granulocytes % 4.4 % (0-4); Lymphocytes % 6.2 %; Mean Corpuscular HGB Conc 30.4 g/dL (31.6-35.5); Mean Corpuscular Hemoglobin 28.4 pg (28.0-33.3); Mean Corpuscular Volume 93.2 fL (83.0-100.0); Platelet Count 286 K/mcL (140-400); Red Blood Count 3.95 M/mcL (3.82-4.97); Red Cell Distribution Width 14.7 % (11.5-14.5)
[2017-07-13 05:06] LABS: Basophils # 0.1 K/mcL (0.0-0.2); Basophils % 0.5 %; Eosinophils # 0.1 K/mcL (0.0-0.6); Eosinophils % 0.4 %; Lymphocytes # 1.8 K/mcL (0.6-4.6); Monocytes # 3.3 K/mcL (0.0-1.3); Neutrophils # 21.9 K/mcL (1.6-8.9)
[2017-07-13 05:18] LABS: Calcium 7.3 mg/dL (8.6-10.8); Potassium 3.3 mEq/L (3.5-4.5)
[2017-07-13 05:30] LABS: Platelet Estimate Normal (Normal); Toxic Granulation Present (Not Present)
[2017-07-13 05:31] LABS: Burr Cells 1+ (Not Present); Poikilocytosis 1+ (Not Present)
[2017-07-13] MEDS: *HR* Heparin 5,000 UNIT/ML VIAL SQ SCH ×2 (06:02→18:23)
[2017-07-13] MEDS: D5% in 0.45% NACL 1,000 ML IVC SCH (06:19)
[2017-07-13] MEDS ORDERED: 0.9 % Sodium Chloride w KCl 20 MEQ/1,000 ML MLS IVC SCH (07:45)
[2017-07-13] MEDS: Cholecalciferol (D-3) 1,000 UNIT TABLET PO SCH ×2 (09:23→21:39)
[2017-07-13] MEDS: lamoTRIgine 100 MG TABLET PO SCH ×4 (09:23→23:01)
[2017-07-13] MEDS: FLUoxetine 20 MG CAPSULE PO SCH (09:23)
[2017-07-13] MEDS: Topiramate 100 MG TABLET PO SCH ×3 (09:23→21:39)
[2017-07-13] MEDS: Loratadine 10 MG TABLET PO SCH (09:23)
[2017-07-13] MEDS: Multivit/Ca/Min/Fe/FA 1 TAB TABLET PO SCH (09:24)
[2017-07-13] MEDS: Vancomycin Oral Soln 250 MG/5 ML UDC PO SCH ×4 (09:24→21:39)
--- NOTE | 2017-07-13 16:53 | Internal Med Progress Note ---
Date of Encounter: 07/13/17 Time of Encounter: 10:35 - Assessment and plan (1) Colitis presumed infectious Current Visit: Yes Status: Acute Assessment and plan: C. difficile colitis. Leukocytosis worsened today. Will increase vancomycin dose to 250 mg 4 times a day. We will stop Rocephin as rest of GI panel was negative. Colonoscopy planned for later today. (2) Clostridium difficile colitis Current Visit: Yes Status: Acute Assessment and plan: C. difficile positive in stool for toxin B. Management as above (3) LENA (acute kidney injury) Current Visit: Yes Status: Acute Assessment and plan: Renal function has stabilized and is back to baseline. (4) Anemia Current Visit: Yes Status: Chronic Assessment and plan: Hemoglobin levels are stable. Qualifiers: Anemia type: due to chronic kidney disease Chronic kidney disease stage: stage 3 (moderate) Qualified Code(s): N18.3 - Chronic kidney disease, stage 3 (moderate); D63.1 - Anemia in chronic kidney disease; D63.1 - Anemia in chronic kidney disease (5) Tuberous sclerosis Current Visit: Yes Status: Chronic Assessment and plan: Continue home medications (6) DVT prophylaxis Current Visit: Yes Status: Acute - Subjective Interval history: Patient currently somnolent. Guardian presented bedside. Awaiting colonoscopy planned for later today. - Constitutional Vitals: Temp Pulse Resp BP Pulse Ox 99.4 F 113 19 94/61 96 07/13/17 15:33 07/13/17 15:33 07/13/17 15:33 07/13/17 15:33 07/13/17 15:33 General appearance: Present: cooperative. Absent: answers questions appropriately - Respiratory Respiratory exam: Present: CTAB. Absent: accessory muscle use, rales, rhonchi, wheezes - Cardiovascular Cardiovascular exam: Present: RRR, +S1, +S2. Absent: diastolic murmur, gallop, rubs, systolic murmur - GI/Abdominal GI/Abdominal exam: Present: normal bowel sounds, soft, no peritoneal signs. Absent: distended, tenderness - Extremities Exam Extremities exam: Present: pedal edema (Bilateral), warm, radial pulses palpable and symmetrical. Absent: calf tenderness, cyanotic Internal Medicine: Result - Labs CBC & Chem 7: 07/13/17 04:12 07/13/17 04:12 Labs: Short CBC 07/13/17 Range/Units 04:12 WBC 28.4 H (4.3-11.1) K/mcL Hgb 11.2 L D (11.5-15.4) g/dL Hct 36.8 (35.3-44.9) % Plt Count 286 (140-400) K/mcL Neutrophils # 21.9 H (1.6-8.9) K/mcL BMP 07/13/17 04:12 Sodium 134 L Potassium 3.3 L Chloride 109 Carbon Dioxide 16 L BUN 24 H Creatinine 1.45 H Glucose 196 H Calcium 7.3 L Consult Discharge Plan - Plan Referrals: Bart Caceres MD [Primary Care Provider] -
[2017-07-13] MEDS ORDERED: Polyethylene Glycol 3350 255 GM POWDER PO ONE ×2 (18:00→18:07)
[2017-07-13] MEDS ORDERED: Ondansetron 4 MG/2 ML VIAL IVP PRN (22:18)
[2017-07-13] MEDS ORDERED: Ondansetron 4 MG/2 ML VIAL IVP ONE (22:18)
[2017-07-14] MEDS: *HR* Heparin 5,000 UNIT/ML VIAL SQ SCH ×2 (06:09→17:31)
[2017-07-14 06:13] LABS: Hematocrit 35.6 % (35.3-44.9); Hemoglobin 11.1 g/dL (11.5-15.4); Mean Corpuscular HGB Conc 31.2 g/dL (31.6-35.5); Mean Corpuscular Hemoglobin 28.8 pg (28.0-33.3); Mean Corpuscular Volume 92.5 fL (83.0-100.0); Mean Platelet Volume 9.6 fL (9.4-12.4); Monocytes # 1.9 K/mcL (0.0-1.3); Nucleated Red Blood Cells 0.2 /100 WBC (0); Platelet Count 332 K/mcL (140-400); Red Blood Count 3.85 M/mcL (3.82-4.97)
[2017-07-14 06:24] LABS: Calcium 6.7 mg/dL (8.6-10.8); Potassium 3.2 mEq/L (3.5-4.5)
[2017-07-14 06:33] LABS: Lymphocytes # 1.9 K/mcL (0.6-4.6); Platelet Estimate Normal (Normal); Reactive Lymphocytes Present (Not Present)
--- NOTE | 2017-07-14 08:00 | Anesthesia Evaluation PreOp ---
Date of Encounter: 07/14/17 Time of Encounter: 07:55 - Past History Planned Operation: EGD/Colonoscopy Cardiac History: Denies any Significant Hx Pulmonary History: Other (BILLINGS-S (Smoth muscle proliferation in lungs)) ANESTHESIA DIRECTOR History: Other (Non-verbal MRDD -) Other Medical History: Renal (Stage III CRD), Other (C. Diff. Anemia, Tuberous Sclerosis) Anesthesia History: No Prior Anesthetic Complications, Past Anesthesia : No Test: Negative (07/11/2017) Alcohol Use: none Drug use: none Medications and Allergies Cholecalciferol (D-3) [Vitamin D] 1,000 unit PO BID 06/18/17 [History] Everolimus [Afinitor] 7.5 mg PO QPM 06/18/17 [History] FLUoxetine HCl [Prozac] 40 mg PO QAM 06/18/17 [History] Ferrous Sulfate 140 mg PO DAILY 06/18/17 [History] Guanfacine HCl 1 mg PO TID 06/18/17 [History] Loratadine [Claritin] 10 mg PO DAILY 06/18/17 [History] Lysine [l-Lysine] 500 mg PO HS 06/18/17 [History] Quetiapine Fumarate 400 mg PO TID 06/18/17 [History] Topiramate 200 mg PO TID 06/18/17 [History] lamoTRIgine [Lamictal Xr] 300 mg PO QAM 06/18/17 [History] lamoTRIgine [Lamictal Xr] 300 mg PO QPM 06/18/17 [History] lamoTRIgine [Lamictal Xr] 400 mg PO HS 06/18/17 [History] Multivit/Ca/Min/Fe/FA [Thera M Plus] 1 tab PO DAILY #30 tablet 06/27/17 [Rx] 3 Allergy/AdvReac Type Severity Reaction Status Date / Time No Known Allergies Allergy Verified 07/11/17 12:25 - Meds/Allergy Pre-op Review Medications Reviewed: Yes Allergies Reviewed: Yes Beta Blockers on Current Med List: No Anesthesia Results - Labs 07/14/17 05:40 07/14/17 05:40 Laboratory Tests 07/11/17 07/14/17 13:55 05:40 WBC 23.8 H Urine Test Negative - Imaging EKG: report reviewed (SINUS TACHYCARDIA POSSIBLE RIGHT ATRIAL ENLARGEMENT NONSPECIFIC T-WAVE ABNORMALITY) Anesthesia Exam O2 Sat O2 Sat by Pulse Oximetry 92 O2 Sat by Pulse Oximetry 96 O2 Sat by Pulse Oximetry 97 O2 Sat by Pulse Oximetry 96 O2 Sat by Pulse Oximetry 93 O2 Sat by Pulse Oximetry 96 O2 Sat by Pulse Oximetry 96 O2 Sat by Pulse Oximetry 96 Vital Signs Temp Pulse Resp BP Pulse Ox 98.9 F 121 20 93/62 97 07/11/17 11:56 07/11/17 11:56 07/11/17 11:56 07/11/17 11:56 07/11/17 11:56 Height: 5'5'' Weight: 141# NPO (# of Hours): > 8 Hrs Pain Scale: 0 Pain Scale Used: Numeric (1 - 10) - HEENT Pupil (Motor): Pupils equal, EOMI Mallampati: III Teeth: Normal Oral Opening: Greater than 3 - ANESTHESIA DIRECTOR LOC: Oriented ANESTHESIA DIRECTOR Motor: Normal RUE, Normal LUE, Normal RLE, Normal LLE, Normal Face ANESTHESIA DIRECTOR Sensory: Normal: RUE, LUE, RLE, LLE, Face - Cardiac Rhythm: Regular Murmur: None JVD: No Carotid Bruit: No - Pulmonary Breath Sounds: bilateral Clear Respiratory Effort: Symmetrical Anesthesia Assess/Plan ASA Score: 4 Modified [place] Scale for Level of Consciousness: Cooperative, oriented, and tranquil Anesthetic Plan: MAC Autologous Blood: Yes Monitoring Plan: Standard Monitors Recovery Plan: PACU
[2017-07-14] MEDS: Loratadine 10 MG TABLET PO SCH (08:13)
[2017-07-14] MEDS: lamoTRIgine 100 MG TABLET PO SCH ×3 (08:13→20:38)
[2017-07-14] MEDS: Multivit/Ca/Min/Fe/FA 1 TAB TABLET PO SCH (08:14)
[2017-07-14] MEDS: FLUoxetine 20 MG CAPSULE PO SCH (08:14)
[2017-07-14] MEDS: Vancomycin Oral Soln 250 MG/5 ML UDC PO SCH ×4 (08:14→20:38)
[2017-07-14] MEDS: Topiramate 100 MG TABLET PO SCH ×3 (08:14→20:37)
[2017-07-14] MEDS: Cholecalciferol (D-3) 1,000 UNIT TABLET PO SCH ×2 (08:14→20:37)
[2017-07-14] MEDS ORDERED: 0.9 % Sodium Chloride 500 ML IVC SCH (08:45)
[2017-07-14] MEDS ORDERED: *HR* Propofol 500 MG/50 ML BOTTLE IVC ONE (09:17)
[2017-07-14] MEDS: MetroNIDAZOLE 500 MG/100 ML 500 MG/100 ML BAG IVPB SCH (09:48)
--- NOTE | 2017-07-14 11:24 | Internal Med Progress Note ---
Date of Encounter: 07/14/17 Time of Encounter: 10:00 - Assessment and plan (1) Clostridium difficile colitis Current Visit: Yes Status: Acute Assessment and plan: Patient with extensive pseudomembranous colitis. Colonoscopy done this morning. Confirms these findings. Continue vancomycin 250 mg by mouth 4 times a day. Also on Flagyl. We will change Flagyl to oral regimen. Leukocytosis is improving. Moderate risk for complications. (2) Colitis presumed infectious Current Visit: Yes Status: Acute (3) LENA (acute kidney injury) Current Visit: Yes Status: Acute Assessment and plan: Creatinine slightly worse today but within her normal baseline range. We will change IV fluids to D5 water with sodium bicarbonate due to developing hyperchloremic acidosis. 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 Appears comfortable. Underwent upper GI endoscopy and colonoscopy this morning. Doing well postprocedure. No acute issues overnight. - Constitutional Vitals: Temp Pulse Resp BP Pulse Ox 98.1 F 105 16 91/53 95 07/14/17 08:32 07/14/17 08:32 07/14/17 08:32 07/14/17 08:32 07/14/17 08:32 General appearance: Present: cooperative. Absent: answers questions appropriately - Respiratory Respiratory exam: Present: CTAB. Absent: accessory muscle use, rales, rhonchi, wheezes - Cardiovascular Cardiovascular exam: Present: RRR, +S1, +S2. Absent: diastolic murmur, gallop, rubs, systolic murmur - GI/Abdominal GI/Abdominal exam: Present: normal bowel sounds, soft, no peritoneal signs. Absent: distended, tenderness - Extremities Exam Extremities exam: Present: pedal edema, warm, radial pulses palpable and symmetrical. Absent: calf tenderness, cyanotic - Skin Skin exam: Present: dry, intact Additional comments: Tuberous sclerosis lesions Internal Medicine: Result - Labs CBC & Chem 7: 07/14/17 05:40 07/14/17 05:40 Consult Discharge Plan - Plan Referrals: Bart Caceres MD [Primary Care Provider] -
[2017-07-14] MEDS: metroNIDAZOLE 500 MG TABLET PO SCH ×2 (15:13→20:38)
[2017-07-14] MEDS: Sodium Bicarbonate 150 MEQ in D5% in Water 1,000 ML IVC SCH ×2 (20:47→23:23)
[2017-07-15 04:23] LABS: Mean Corpuscular Volume 92.5 fL (83.0-100.0); Red Cell Distribution Width 15.1 % (11.5-14.5)
[2017-07-15 04:24] LABS: Hematocrit 36.8 % (35.3-44.9); Hemoglobin 11.6 g/dL (11.5-15.4); Mean Corpuscular HGB Conc 31.5 g/dL (31.6-35.5); Mean Corpuscular Hemoglobin 29.1 pg (28.0-33.3); Mean Platelet Volume 9.5 fL (9.4-12.4); Nucleated Red Blood Cells 0.3 /100 WBC (0); Platelet Count 398 K/mcL (140-400); Red Blood Count 3.98 M/mcL (3.82-4.97)
[2017-07-15 04:36] LABS: Calcium 7.1 mg/dL (8.6-10.8); Potassium 3.3 mEq/L (3.5-4.5)
[2017-07-15 04:48] LABS: Lymphocytes # 1.9 K/mcL (0.6-4.6); Monocytes # 3.9 K/mcL (0.0-1.3); Neutrophils # 26.4 K/mcL (1.6-8.9)
[2017-07-15 04:49] LABS: Platelet Estimate Normal (Normal); Polychromasia 1+ (Not Present)
[2017-07-15] MEDS: *HR* Heparin 5,000 UNIT/ML VIAL SQ SCH ×2 (06:52→15:18)
[2017-07-15] MEDS: Cholecalciferol (D-3) 1,000 UNIT TABLET PO SCH ×2 (09:04→20:29)
[2017-07-15] MEDS: FLUoxetine 20 MG CAPSULE PO SCH (09:04)
[2017-07-15] MEDS: Topiramate 100 MG TABLET PO SCH ×3 (09:04→20:29)
[2017-07-15] MEDS: lamoTRIgine 100 MG TABLET PO SCH ×3 (09:04→20:30)
[2017-07-15] MEDS: Loratadine 10 MG TABLET PO SCH (09:04)
[2017-07-15] MEDS: Lactobacillus 1 EACH CAP.SPRINK PO SCH ×2 (09:05→20:30)
[2017-07-15] MEDS: Multivit/Ca/Min/Fe/FA 1 TAB TABLET PO SCH (09:05)
[2017-07-15] MEDS: Fidaxomicin 200 MG TABLET PO SCH ×2 (09:10→20:29)
[2017-07-15 14:01] LABS: Albumin/Globulin Ratio 0.6 (1.1-2.2); Bilirubin,Direct 0.1 mg/dL (0.0-0.5); Bilirubin,Indirect 0.1 mg/dL (0.0-1.2); Bilirubin,Total 0.2 mg/dL (0.2-1.2); Globulin 2.8 g/dL (2.4-3.5); Total Protein 4.4 g/dL (6.0-8.3)
[2017-07-15 14:05] LABS: Albumin 1.6 g/dL (3.5-5.0)
--- NOTE | 2017-07-15 14:37 | Internal Med Progress Note ---
Date of Encounter: 07/15/17 Time of Encounter: 10:35 - Assessment and plan (1) Clostridium difficile colitis Current Visit: Yes Status: Acute Assessment and plan: We will clinically the patient looks better, and obesity count continues to rise and is at [address] scan of the pelvis are ordered and shows progressive severe colitis. No evidence of toxic megacolon at this time. There is diffuse body wall edema and third spacing. At this time. Change antibiotic fidaxomicin due to poor response to vancomycin and Flagyl. Continue to monitor vital signs closely. High risk for complications. (2) Colitis presumed infectious Current Visit: Yes Status: Acute (3) LENA (acute kidney injury) Current Visit: Yes Status: Acute Assessment and plan: Creatinine remained stable. Metabolic acidosis has been worsening. Patient had removed her IV last evening and a new one was unable to be placed. She as such she did not receive D5 water with bicarbonate overnight. A new IV has been placed at this time. Continue IV hydration. 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 Encourage oral protein intake. Will consider albumin plus Lasix depending on her basic metabolic panel tomorrow. - Subjective Interval history: Patient is awake and alert. She is smiling and playing in her bed. Does not appear to be in any sort of discomfort at this time. Patient had one episode of diarrhea this morning. - Constitutional Vitals: Temp Pulse Resp BP Pulse Ox 98.5 F 108 14 101/67 96 07/15/17 08:25 07/15/17 08:25 07/15/17 08:25 07/15/17 08:25 07/15/17 08:25 General appearance: Present: cooperative. Absent: answers questions appropriately - Neck Neck exam general surgery: Present: supple, trachea midline. Absent: lymphadenopathy - Respiratory Respiratory exam: Present: CTAB. Absent: accessory muscle use, rales, rhonchi, wheezes - Cardiovascular Cardiovascular exam: Present: RRR, +S1, +S2. Absent: diastolic murmur, gallop, rubs, systolic murmur - GI/Abdominal GI/Abdominal exam: Present: normal bowel sounds, soft, no peritoneal signs. Absent: distended, tenderness - Extremities Exam Extremities exam: Present: pedal edema, warm, radial pulses palpable and symmetrical. Absent: calf tenderness, cyanotic Internal Medicine: Result - Labs CBC & Chem 7: 07/15/17 03:56 07/15/17 03:56 Labs: Short CBC 07/15/17 Range/Units 03:56 WBC 32.2 H* (4.3-11.1) K/mcL Hgb 11.6 (11.5-15.4) g/dL Hct 36.8 (35.3-44.9) % Plt Count 398 (140-400) K/mcL Neutrophils # 26.4 H (1.6-8.9) K/mcL BMP 07/15/17 03:56 Sodium 135 L Potassium 3.3 L Chloride 112 H Carbon Dioxide 13 L BUN 26 H Creatinine 1.59 H Glucose 97 Calcium 7.1 L Liver Function 07/15/17 Range/Units 03:56 Total Bilirubin 0.2 (0.2-1.2) mg/dL Direct Bilirubin 0.1 (0.0-0.5) mg/dL AST 36 H (5-34) Units/L ALT 21 (0-55) Units/L Alkaline Phosphatase 99 (38-126) Units/L Albumin 1.6 L (3.5-5.0) g/dL - Impressions Impressions Abdomen/Pelvis CT 07/15/17 07:39 IMPRESSION: 1. Severe progressive pancolitis consistent with C difficile colitis. No evidence of perforation or obstruction. 2. Evidence of third spacing with new diffuse body wall edema, mild bilateral pleural effusions. Mild pericardial effusion, diffuse peritoneal/retroperitoneal edema and mild ascites. 3. 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 D/ : / 07/15/2017 11:16:31 Juan Carlos Roque MD / [email or web address] Interpreting Provider: Juan Carlos Roque MD Consult Discharge Plan - Plan Referrals: Bart Caceres MD [Primary Care Provider] -
[2017-07-16] MEDS ORDERED: Sodium Bicarbonate 150 MEQ in D5% in Water 1,000 ML IVC SCH (01:00)
[2017-07-16 04:16] LABS: Hematocrit 31.8 % (35.3-44.9); Hemoglobin 10.2 g/dL (11.5-15.4); Mean Corpuscular HGB Conc 32.1 g/dL (31.6-35.5); Mean Corpuscular Hemoglobin 29.4 pg (28.0-33.3); Mean Corpuscular Volume 91.6 fL (83.0-100.0); Mean Platelet Volume 9.5 fL (9.4-12.4); Nucleated Red Blood Cells 0.3 /100 WBC (0); Platelet Count 383 K/mcL (140-400); Red Blood Count 3.47 M/mcL (3.82-4.97); Red Cell Distribution Width 15.1 % (11.5-14.5)
[2017-07-16 04:25] LABS: Potassium 2.8 mEq/L (3.5-4.5)
[2017-07-16 04:44] LABS: Basophils # 1.7 K/mcL (0.0-0.2); Lymphocytes # 4.8 K/mcL (0.6-4.6); Monocytes # 2.6 K/mcL (0.0-1.3); Neutrophils # 12.6 K/mcL (1.6-8.9); Platelet Estimate Normal (Normal)
[2017-07-16] MEDS: *HR* Heparin 5,000 UNIT/ML VIAL SQ SCH ×2 (05:40→21:48)
[2017-07-16] MEDS ORDERED: Potassium Chloride 40 MEQ, Lidocaine 1% 2 ML in D5% in Water 500 ML IVPB ONE (07:29)
--- NOTE | 2017-07-16 10:12 | Internal Med Progress Note ---
Date of Encounter: 07/16/17 Time of Encounter: 10:12 - Assessment and plan (1) Clostridium difficile colitis Current Visit: Yes Status: Acute Assessment and plan: Continues to improve clinically. Does continue to have diarrhea but improving. WBC count is also improving. Continue Dificid (2) Colitis presumed infectious Current Visit: Yes Status: Acute (3) LENA (acute kidney injury) Current Visit: Yes Status: Acute Assessment and plan: Improved. (4) Anemia Current Visit: Yes Status: Chronic Assessment and plan: Hemoglobin 10.2 today. 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 Intravenous fluids have been stopped. (8) Hypokalemia Current Visit: Yes Status: Acute Assessment and plan: Replete intravenously and orally - Subjective Interval history: Patient is doing well this morning. Had a shower. Continues to have some loose stools. No fever or chills overnight. No nausea or vomiting. Tolerating oral diet well. - Constitutional Vitals: Temp Pulse Resp BP Pulse Ox 97.6 F 96 17 95/65 96 07/16/17 07:44 07/16/17 07:44 07/16/17 07:44 07/16/17 07:44 07/16/17 07:44 General appearance: Present: cooperative. Absent: answers questions appropriately - Eye Eye exam: Present: EOMI, PERRL, conjuntiva pink, sclera anicteric - Respiratory Respiratory exam: Present: CTAB. Absent: accessory muscle use, rales, rhonchi, wheezes - Cardiovascular Cardiovascular exam: Present: RRR, +S1, +S2. Absent: diastolic murmur, gallop, rubs, systolic murmur - GI/Abdominal GI/Abdominal exam: Present: distended, normal bowel sounds, soft, no peritoneal signs. Absent: tenderness - Neurological Exam Neurological exam: Present: alert, no focal deficits. Absent: facial droop, speech deficit - Skin Skin exam: Present: dry, intact Additional comments: Tuberous sclerosis lesions on face Internal Medicine: Result - Labs CBC & Chem 7: 07/16/17 03:22 07/16/17 03:22 Labs: Short CBC 07/16/17 Range/Units 03:22 WBC 21.7 H (4.3-11.1) K/mcL Hgb 10.2 L (11.5-15.4) g/dL Hct 31.8 L (35.3-44.9) % Plt Count 383 (140-400) K/mcL Neutrophils # 12.6 H (1.6-8.9) K/mcL BMP 07/15/17 07/16/17 03:56 03:22 Sodium 135 L 135 L Potassium 3.3 L 2.8 L Chloride 112 H 107 Carbon Dioxide 13 L 22 BUN 26 H 19 Creatinine 1.59 H 1.44 H Glucose 97 103 H Calcium 7.1 L 7.0 L Liver Function 07/15/17 Range/Units 03:56 Total Bilirubin 0.2 (0.2-1.2) mg/dL Direct Bilirubin 0.1 (0.0-0.5) mg/dL AST 36 H (5-34) Units/L ALT 21 (0-55) Units/L Alkaline Phosphatase 99 (38-126) Units/L Albumin 1.6 L (3.5-5.0) g/dL - Impressions Impressions Abdomen/Pelvis CT 07/15/17 07:39 IMPRESSION: 1. Severe progressive pancolitis consistent with C difficile colitis. No evidence of perforation or obstruction. 2. Evidence of third spacing with new diffuse body wall edema, mild bilateral pleural effusions. Mild pericardial effusion, diffuse peritoneal/retroperitoneal edema and mild ascites. 3. 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 D/ / 07/15/2017 11:16:31 Juan Carlos Roque MD / [email or web address] Interpreting Provider: Juan Carlos Roque MD Consult Discharge Plan - Plan Referrals: Bart Caceres MD [Primary Care Provider] -
[2017-07-16] MEDS: Potassium Chloride Elixir 20 MEQ/15 ML UDC PO SCH ×2 (10:18→21:48)
[2017-07-16] MEDS: lamoTRIgine 100 MG TABLET PO SCH ×3 (10:18→21:47)
[2017-07-16] MEDS: Fidaxomicin 200 MG TABLET PO SCH ×2 (10:18→21:46)
[2017-07-16] MEDS: Topiramate 100 MG TABLET PO SCH ×3 (10:18→21:46)
[2017-07-16] MEDS: FLUoxetine 20 MG CAPSULE PO SCH (10:18)
[2017-07-16] MEDS: Multivit/Ca/Min/Fe/FA 1 TAB TABLET PO SCH (10:18)
[2017-07-16] MEDS: Cholecalciferol (D-3) 1,000 UNIT TABLET PO SCH ×2 (10:19→21:48)
[2017-07-16] MEDS: Loratadine 10 MG TABLET PO SCH (10:19)
[2017-07-16] MEDS: Lactobacillus 1 EACH CAP.SPRINK PO SCH ×2 (10:19→21:47)
[2017-07-17 03:54] VITALS: BP 94/65
[2017-07-17 07:47] LABS: Hematocrit 32.5 % (35.3-44.9); Hemoglobin 10.3 g/dL (11.5-15.4); Mean Corpuscular HGB Conc 31.7 g/dL (31.6-35.5); Mean Corpuscular Volume 91.5 fL (83.0-100.0); Mean Platelet Volume 8.8 fL (9.4-12.4); Nucleated Red Blood Cells 0.4 /100 WBC (0); Platelet Count 383 K/mcL (140-400); Red Blood Count 3.55 M/mcL (3.82-4.97); Red Cell Distribution Width 15.4 % (11.5-14.5)
[2017-07-17 07:59] LABS: Calcium 7.2 mg/dL (8.6-10.8); Potassium 3.6 mEq/L (3.5-4.5)
[2017-07-17 08:11] LABS: Basophils # 0.2 K/mcL (0.0-0.2); Eosinophils # 0.2 K/mcL (0.0-0.6); Monocytes # 0.6 K/mcL (0.0-1.3); Neutrophils # 13.9 K/mcL (1.6-8.9); Platelet Estimate Normal (Normal)
[2017-07-17] MEDS: Potassium Chloride Elixir 20 MEQ/15 ML UDC PO SCH (08:26)
[2017-07-17] MEDS: Topiramate 100 MG TABLET PO SCH ×2 (08:27→15:50)
[2017-07-17] MEDS: FLUoxetine 20 MG CAPSULE PO SCH (08:27)
[2017-07-17] MEDS: Multivit/Ca/Min/Fe/FA 1 TAB TABLET PO SCH (08:27)
[2017-07-17] MEDS: Fidaxomicin 200 MG TABLET PO SCH (08:27)
[2017-07-17] MEDS: Lactobacillus 1 EACH CAP.SPRINK PO SCH (08:27)
[2017-07-17] MEDS: Cholecalciferol (D-3) 1,000 UNIT TABLET PO SCH (08:27)
[2017-07-17] MEDS: Loratadine 10 MG TABLET PO SCH (08:27)
[2017-07-17] MEDS: lamoTRIgine 100 MG TABLET PO SCH (08:27)
[2017-07-17] MEDS: *HR* Heparin 5,000 UNIT/ML VIAL SQ SCH (08:28)
--- NOTE | 2017-07-17 11:52 | Discharge Summary ---
Date of Encounter: 07/17/17 Time of Encounter: 11:40 - Discharge Diagnosis (1) Clostridium difficile colitis Priority: Primary Status: Acute (2) Colitis presumed infectious Priority: Secondary Status: Acute (3) LENA (acute kidney injury) Priority: Secondary Status: Acute (4) Anemia Priority: Secondary Status: Chronic Qualifiers: Anemia type: due to chronic kidney disease Chronic kidney disease stage: stage 3 (moderate) Qualified Code(s): N18.3 - Chronic kidney disease, stage 3 (moderate); D63.1 - Anemia in chronic kidney disease; D63.1 - Anemia in chronic kidney disease (5) Tuberous sclerosis Priority: Secondary Status: Chronic (6) DVT prophylaxis Priority: Secondary Status: Acute (7) Anasarca Priority: Secondary Status: Acute (8) Hypokalemia Priority: Secondary Status: Resolved - Discharge Medications Prescriptions: Fidaxomicin [Dificid] 200 mg PO BID #16 tablet Lactobacillus [Culturelle] 1 each PO BID #20 cap.sprink Potassium Chloride Elixir [Potassium Chloride] 20 meq PO DAILY #20 Home Medications: Cholecalciferol (D-3) [Vitamin D] 1,000 unit PO BID 06/18/17 [History] Everolimus [Afinitor] 7.5 mg PO QPM 06/18/17 [History] FLUoxetine HCl [Prozac] 40 mg PO QAM 06/18/17 [History] Ferrous Sulfate 140 mg PO DAILY 06/18/17 [History] Guanfacine HCl 1 mg PO TID 06/18/17 [History] Loratadine [Claritin] 10 mg PO DAILY 06/18/17 [History] Lysine [l-Lysine] 500 mg PO HS 06/18/17 [History] Quetiapine Fumarate 400 mg PO TID 06/18/17 [History] Topiramate 200 mg PO TID 06/18/17 [History] lamoTRIgine [Lamictal Xr] 300 mg PO QAM 06/18/17 [History] lamoTRIgine [Lamictal Xr] 300 mg PO QPM 06/18/17 [History] lamoTRIgine [Lamictal Xr] 400 mg PO HS 06/18/17 [History] Multivit/Ca/Min/Fe/FA [Thera M Plus] 1 tab PO DAILY #30 tablet 06/27/17 [Rx] Fidaxomicin [Dificid] 200 mg PO BID #16 tablet 07/17/17 [Rx] Lactobacillus [Culturelle] 1 each PO BID #20 cap.sprink 07/17/17 [Rx] Potassium Chloride Elixir [Potassium Chloride] 20 meq PO DAILY #20 07/17/17 [Rx] Allergies/Adverse Reactions: 3 Allergy/AdvReac Type Severity Reaction Status Date / Time No Known Allergies Allergy Verified 07/11/17 12:25 Procedures/tests Complete & Pending: Procedures Performed prior 72 hours Category Date Time Status CT abd pelvis wo no iv no oral [CT] Stat Cat Scan 07/15/17 07:39 Completed Date of admission: 07/14/17 10:33 Primary care physician: Bart Caceres MD Consults: 07/15/17 14:50 Consult to Invasive Line Access Team [CONS] Routine Reason for Consult: Poor vascular access Line Type: EPIV Discharging clinician: Harriett Ramon Anticipated date of discharge: 07/17/17 - Patient Status Disposition: Home, Self-Care Condition: Good Functional capacity at discharge: independent ambulation Overall status at discharge: patient is progressing back to baseline - Discharge Instructions Instructions: Clostridium Difficile Infection (DC) Follow Up With: Bart Caceres MD [Primary Care Provider] - (in 1 week) Additional Instructions: Follow-up appointments: If there is not an appointment listed below, please call your physician and schedule a follow-up appointment. If you have congestive heart failure and your symptoms return, make an appointment with your physician. Medication List: Carry an up to date list of medications you are taking at all time. We have given you an updated medication list including any new medications that you have been prescribed. Please provide that list to your primary provider Symptoms: If your condition changes or you experience any of the following symptoms, notify your physician immediately: Unusual or worsening pain, fever, persistent nausea and vomiting, bleeding, increase in swelling (especially in your legs), sudden weight gain, extreme dizziness, chest pain, increased drainage or redness from a wound or incision. Go to the emergency department if you experience a problem with breathing. Weights: If you have a history of swelling or shortness of breath, weigh yourself daily and notify your physician if you have a weight gain of two or more pounds in one day or 5 or more pounds in a week. If you experience any of the warning signs for stroke: Sudden numbness or weakness of the face, arm or leg; especially on one side of the body, sudden confusion, trouble speaking or understanding, sudden trouble seeing in one or both eyes, sudden trouble walking, dizziness, loss of balance or coordination, sudden sever headache with no cause; Call 911 or go to the emergency room. Stroke is a medical emergency. Some risk factors for stroke: Age, cigarette smoking, diabetes, excessive alcohol consumption, family history , high blood pressure, overweight, physical inactivity, prior stroke, heart attack, diagnosis of carotid artery stenosis or other artery disease. If you smoke, STOP: Smoking or tobacco use significantly increases your risk of heart and lung disease. Your chance of disease greatly increases if you continue to smoke. For more information, call the [place] quit line for smoking cessation QUIT-NOW ( ) - Diet and Activity Activity: increase activity as tolerated Diet: advance to your usual diet Hospital course: Ms. Magallanes is a 36 year old female patient with a history of tuberous sclerosis was admitted here with acute colitis. Her stool was positive for C. difficile. Patient was started on treatment with Flagyl and vancomycin. Her symptoms seem to be getting worse initially with rising WBC count. Repeat CT scan of the abdomen and pelvis showed worsening colitis and so patient was switched over to fidaxomicin. since this medication was started, her WBC count has trended down. She is now doing much better. She is more awake alert and participating in activities well .she is tolerating oral diet well. She underwent a colonoscopy which showed presence of pseudomembranes confirming diagnosis of C. difficile colitis. She will complete a 10 day course with fidaxomicin. She is advised to return to the ER if she develops worsening symptoms including worsening diarrhea, abdominal pain, fever chills, nausea or vomiting. - Time Spent with Patient Total time spent providing and/or coordinating discharge services: Greater than 30 minutes (35 min) - Constitutional Vitals: Temp Pulse Resp BP Pulse Ox 97.6 F 99 14 94/65 95 07/17/17 03:54 07/17/17 03:54 07/17/17 03:54 07/17/17 03:54 07/17/17 03:54 General appearance: Present: cooperative. Absent: answers questions appropriately - Neck Neck exam general surgery: Present: supple, trachea midline. Absent: lymphadenopathy - Respiratory Respiratory exam: Present: CTAB. Absent: accessory muscle use, rales, rhonchi, wheezes - Cardiovascular Cardiovascular exam: Present: RRR, +S1, +S2. Absent: diastolic murmur, gallop, rubs, systolic murmur - GI/Abdominal GI/Abdominal exam: Present: distended, normal bowel sounds, soft, no peritoneal signs. Absent: tenderness - Neurological Exam Neurological exam: Present: alert, no focal deficits. Absent: facial droop, speech deficit - Skin Skin exam: Present: dry, intact Additional comments: Skin lesions from tuberous sclerosis
== END 2017-07-17 16:50 | disposition home or self-care (01) | DRG 248 ==
LOC: EMEROO 11:41 → 3ANU 11:41
PROVIDERS: ADMIT Internal Medicine; ATTEND Internal Medicine
PROC: ENDOEBX (2017-07-14 08:30)
PROC: ENDOCBX (2017-07-14 08:30)